=== PATIENT | female | born 1980 | race Caucasian/White ===

== ENCOUNTER 2020-03-04 09:00 | Outpatient (REF) | payer OTHER, SELFPAY | END 2020-03-04 09:01 | disposition home or self-care (01) | LOC: HO.WFDLDS 09:00 | PROVIDERS: Visit Provider Internal Medicine | DX: Z20.822 Contact with and (suspected) exposure to COVID-19 (principal) | CPT/HCPCS: 36415; C9803; U0003 ==

== ENCOUNTER 2023-11-09 11:36 | Emergency (ER) | payer OTHER, SELFPAY ==
--- NOTE | ~2023-11-09 | CT_ITS ---
EXAMINATION: CT ABDOMEN AND PELVIS WITHOUT CONTRAST CLINICAL INFORMATION: Left lower quadrant pain COMPARISON: None available. TECHNIQUE: Multidetector volumetric imaging was performed from the superior aspect of the liver through the pubic symphysis. Sagittal and coronal reformatted images were obtained on the technologist's workstation. This CT examination was performed using dose optimization techniques as appropriate, variously including the following: *Automated exposure control *Adjustment of mA and/or kV according to patient size (this includes techniques or standardized protocols for targeted exams where dose is matched to indication/reason for exam; i.e. extremities or head) *Use of iterative reconstruction technique DLP: 653 mGy-cm FINDINGS: CANE CUTTER: Nonobstructive bowel pattern. Hepatomegaly. LUNG BASES: The visualized lung bases are unremarkable. LIVER, GALLBLADDER, AND BILIARY TREE: The liver is enlarged and diffusely hypodense. No focal hepatic lesion or biliary ductal dilatation is present. The gallbladder is unremarkable with no evidence of radiopaque gallstones, gallbladder wall thickening, or obvious pericholecystic inflammatory changes. PANCREAS: Unremarkable. SPLEEN: Enlarged at 15.5 cm. Splenule. ADRENAL GLANDS: Unremarkable right adrenal gland. 1.4 cm left adrenal lesion with Hounsfield units less than 10, likely benign adenoma. KIDNEYS AND URETERS: The kidneys are normal in size, shape, and attenuation. No hydronephrosis, hydroureter, or calculi seen. No perinephric stranding. 2 cm right lower pole renal cyst. 5 mm left midpole nonobstructing renal calculus. BLADDER: Decompressed. GASTROINTESTINAL TRACT: Moderately distended stomach. No small bowel obstruction. Unremarkable terminal ileum and appendix. No colonic pathology recognized. ABDOMINAL WALL: Small fat filled umbilical hernia. LYMPH NODES: Nonspecific prominent mediastinal lymph nodes. VASCULAR: Unremarkable. PELVIC VISCERA: Unremarkable. OSSEOUS STRUCTURES: L5-S1 disc disease. CT/CT abdomen pelvis wo IV con IMPRESSION: 1. No acute intra-abdominal or pelvic pathology. 2. Hepatosplenomegaly. 3. 1.4 cm left adrenal adenoma. 4. 2 cm right lower pole renal cyst. 5. 5 mm left mid pole nonobstructing renal calculus. Fleischner guidelines were followed. Electronically signed by: Angie Coronel MD 11/09/2023 02:32 PM EDT
[2023-11-09 11:55] VITALS: BP 167/115; PULSE 129; RESP 18; TEMP 36.6; O2SAT 99; BMI 31.3
[2023-11-09 12:33] LABS: MANUAL DIFF FLAG NO
[2023-11-09 12:34] LABS: Basophils Percent Auto 0.5 % (0-2); Eosinophils Absolute Auto 0.1 X10*3/uL (0.0-0.4); Eosinophils Percent Auto 0.7 % (0-4); Hematocrit 42.1 % (37.0-47.0); Hemoglobin 14.2 g/dl (12.0-16.0); Imm Gran Abs Auto 0.02 X10*3/uL (0.00-0.03); Imm Gran Pct Auto 0.3 % (0.0-0.4); Lymphocytes Absolute Auto 1.4 X10*3/uL (1.2-4.9); Lymphocytes Percent Auto 18.8 % (20-40); Mean Corpuscular HGB Conc 33.7 g/dl (31.0-35.0); Mean Corpuscular Hemoglobin 30.5 pg (27.0-33.0); Mean Corpuscular Volume 90.5 fL (80.0-98.0); Mean Platelet Volume 11.9 fL (9.4-12.3); Monocytes Absolute Auto 0.6 X10*3/uL (0.1-1.2); Monocytes Percent Auto 7.5 % (2-11); Neutrophils Absolute Auto 5.3 x10*3/uL (2.0-8.3); Neutrophils Percent Auto 72.2 % (45-73); Platelet Count 178 X10*3/uL (160-400); Red Blood Count 4.65 X10*6/uL (4.20-5.50); Red Cell Distribution Width 13.6 % (11.0-16.0); White Blood Count 7.3 X10*3/uL (4.8-10.8)
[2023-11-09 12:36] LABS: Appearance Urine Clear; Color Urine Yellow; Glucose Urine UA Negative (Negative); Leukocyte Esterase Urine Trace (Negative); Nitrite Urine Negative (Negative); PH 5.5 (5.0-9.0); Specific Gravity - Urine 1.025 (1.005-1.025); UMIC TRIGGER UACC YES; Urine Blood Negative (Negative); Urine Ketones Trace mg/dL (Negative); Urine Protein Trace mg/dL (Neg-Trace)
[2023-11-09 12:45] LABS: Bacteria Urine None Seen (None Seen); Hyaline Casts Urine 0-2 /LPF (0-2); RBC Urine 0-2 /HPF (0-2); WBC Urine 0-5 /HPF (0-5)
[2023-11-09 12:48] LABS: Alanine Aminotransferase 14 U/L (0-31); Albumin Level 4.8 g/dL (3.5-5.0); Alkaline Phosphatase 48 U/L (39-117); Anion Gap 12 (12-20); Aspartate Amino Transferase 13 U/L (5-31); Bilirubin Total 0.4 mg/dL (0.0-1.0); Blood Urea Nitrogen 11 mg/dL (9-16); Calcium 10.4 mg/dL (8.4-10.2); Carbon Dioxide 31 mmol/L (22-29); Chloride 104 mmol/L (96-108); Estimated Glomerular Filt Rate > 60; Glucose Random 129 mg/dL (60-115); Lipase 28 U/L (8-78); Potassium 4.1 mmol/L (3.3-5.1); Sodium 143 mmol/L (135-145); Total Protein 7.5 g/dL (6.5-8.0)
[2023-11-09 13:15] LABS: UPreg QC Valid YES; Urine Pregnancy NEGATIVE (NEGATIVE)
--- NOTE | 2023-11-09 13:36 | ED.ABDPAIN ---
HPI - Abdominal Pain General Chief Complaint: Abdominal Pain Stated Complaint: L flank pain 5 days Time Seen by Provider: 11/09/23 12:54 Source: patient Mode of arrival: ambulatory Limitations: no limitations History of Present Illness ED Provider: CARA COONEY PA-C HPI narrative: 43 year old female with pmhx significant for nephrolithiasis presents to the ED today for evaluation of left lower quadrant abdominal pain x2 weeks, worsening over the last 5-6 days. Admits to extensive history of renal stones, often requiring surgical management on the left side. Follows with urology at [facility]. Last surgery was approx 10 yrs ago. Admits to passing stone on the right yesterday and since this time, hematuria has been resolving. Admits to continued pain to LLQ which has been waxing/ waning in intensity, now worsening. Patient reports trialing IM toradol yesterday without affect. Admits to associated chills and nausea without vomiting. Normal BM. No hx of diverticulosis/ diverticulitis. Denies fever, flank pain, dysuria, diarrhea, constipation. Related Data Previous Rx's ?Medication ?Instructions ?Recorded ondansetron 4 mg disintegrating 4 mg PO DAILY PRN nausea and 11/09/23 tablet vomiting 5 days #10 tabs prednisone 50 mg tablet 50 mg PO DAILY 5 days #5 tabs 11/09/23 tramadol 50 mg tablet 50 mg PO Q8H PRN pain (scale score 11/09/23 4-6) #10 tabs Allergies Allergy/AdvReac Type Severity Reaction Status Date / Time No Known Allergies Allergy Verified 11/09/23 11:57 [No Known Allergies*] Review of Systems Review of Systems Constitutional: No fever, chills, fatigue, night sweats, weight changes ENT/Mouth: No ear pain, hearing loss, nasal congestion, sinus pain, rhinorrhea, sore throat Eyes: No eye pain, swelling, redness, vision changes, discharge Cardio: No chest pain, palpitations, WONG, orthopnea, peripheral edema Pulm: No SOB, cough, sputum, wheezing, dyspnea, hemoptysis GI: No vomiting, hematemesis, diarrhea, constipation, hematochezia, melena, +LLQ pain, +nausea : No irregular bleeding, dysuria, frequency, urgency, hesitancy, hematuria, flank pain, urinary flow changes, urinary incontinence or retention MSK: No back pain, neck pain, joint pain, myalgias Skin: No lesions, rashes Neuro: No weakness, numbness, paresthesias, LOC, dizziness, headache Psych: No anxiety/panic, depression, SI/HI, AH/VH All other systems reviewed and are negative. [facility] Past Medical History Attestation statement: The following information was validated with the patient. Source: old records reviewed and nursing notes reviewed Social History Social History Advance Directives: No Advance Directives Information Provided: No Physical Exam ED Vital Signs: Vital Signs - 24 hr 11/09/23 11:55 Temperature 97.8 F Pulse Rate 129 H Respiratory Rate 18 Blood Pressure 167/115 H Pulse Oximetry 99 Oxygen Delivery Method Room Air BMI result Body Mass Index 31.3 Course Course Course Narrative: 1336 -- cbc without leukocytosis or left shift. no anemia. h&h stable. No acute electrolyte abnormalities requiring intervention. Random glucose 129. No OLIVIA. Normal liver enzymes. Lipase WNL, pancreatitis unlikely. Urine without infection or blood. negative. CT abdomen/pelvis pending. > at this time, patient being treated with Zofran, Toradol and IV fluids 1512 -- patient reports improvement in pain with Toradol. Admits pain continues to wax and wane. Nausea has resolved. CT abdomen/pelvis showing hepatic steatosis. Unremarkable gallbladder without evidence of acute cholecystitis. There is a 1.4 cm left adrenal lesion consistent with benign adenoma, of which patient is aware of and has the appropriate follow-up for. The kidneys are normal in size bilaterally without evidence of hydronephrosis or hydroureter. No obvious ureteral calculi noted. No perinephric stranding. There is a 2 cm right lower pole renal cyst and a 5 mm left mid pole nonobstructing renal calculi. No evidence of bowel obstruction or significant stool burden. I discussed all workup results with patient. t is likely that she may be passing a stone too small for us to see on CT scan. advised to continue home flomax. Will send prednisone, tramadol and Zofran to pharmacy for symptomatic control. I advised her to follow up with her urologist regarding today's findings. Patient has remained stable throughout ED visit today. Discussed worrisome signs and symptoms and when to return to the ED. All questions answered at this time. Patient is agreeable with disposition and stable for discharge. Medical Decision Making Medical Decision Making [facility] Narrative: 43 year old female with pmhx significant for nephrolithiasis presents to the ED today for evaluation of left lower quadrant abdominal pain x2 weeks, worsening over the last 5-6 days, most concerning for nephrolithiasis, renal colic. Differential diagnoses: appendicitis, diverticulitis, diverticulosis, UTI, IUP, constipation Abdominal exam without peritoneal signs. No evidence of acute abdomen at this time. Well appearing. Low suspicion for acute hepatobiliary disease (including acute cholecystitis), acute infectious processes (pneumonia, hepatitis, pyelonephritis, PID, TOA), vascular catastrophe, bowel obstruction or viscus perforation, ovarian cyst/ rupture/ torsion, ectopic. Presentation not consistent with other acute, emergent causes of abdominal pain at this time. Plan: labs, UA, CT AP, pain control, fluids, serial reassessment Differential Diagnosis Differential Diagnoses: The differential diagnosis associated with the presentation includes as above Admission/Observation Not indicated Lab Data [facility] Lab Attestation statement: I reviewed the patient's lab results. As above 11/09/23 12:14 11/09/23 12:14 Labs: Lab Results 11/09/23 Range/Units 12:14 WBC 7.3 (4.8-10.8) X10*3/uL RBC 4.65 (4.20-5.50) X10*6/uL Hgb 14.2 (12.0-16.0) g/dl Hct 42.1 (37.0-47.0) % MCV 90.5 (80.0-98.0) fL MCH 30.5 (27.0-33.0) pg MCHC 33.7 (31.0-35.0) g/dl RDW 13.6 (11.0-16.0) % Plt Count 178 (160-400) X10*3/uL MPV 11.9 (9.4-12.3) fL Immature Gran % (Auto) 0.3 (0.0-0.4) % Neut % (Auto) 72.2 (45-73) % Lymph % (Auto) 18.8 L (20-40) % [place] % (Auto) 7.5 (2-11) % Eos % (Auto) 0.7 (0-4) % Baso % (Auto) 0.5 (0-2) % Lymph # (Auto) 1.4 (1.2-4.9) X10*3/uL [place] # (Auto) 0.6 (0.1-1.2) X10*3/uL Eos # (Auto) 0.1 (0.0-0.4) X10*3/uL Baso # (Auto) 0.0 (0.0-0.2) X10*3/uL Abs Immat Gran (auto) 0.02 (0.00-0.03) X10*3/uL Absolute Neuts (auto) 5.3 (2.0-8.3) x10*3/uL Absolute Nucleated RBC 0.000 (0.0-0.012) X10*3/uL Nucleated RBC % (auto) 0.0 (0.0-0.2) /100WBC Sodium 143 (135-145) mmol/L Potassium 4.1 (3.3-5.1) mmol/L Chloride 104 (96-108) mmol/L Carbon Dioxide 31 H (22-29) mmol/L Anion Gap 12 (12-20) BUN 11 (9-16) mg/dL Creatinine 0.82 (0.5-1.4) mg/dL Estim Creat Clear Calc 115.0 Estimated GFR > 60 Random Glucose 129 H (60-115) mg/dL Calcium 10.4 H (8.4-10.2) mg/dL Total Bilirubin 0.4 (0.0-1.0) mg/dL AST 13 (5-31) U/L ALT 14 (0-31) U/L Alkaline Phosphatase 48 (39-117) U/L Total Protein 7.5 (6.5-8.0) g/dL Albumin 4.8 (3.5-5.0) g/dL Lipase 28 (8-78) U/L Urine Color Yellow Urine Appearance Clear Urine pH 5.5 (5.0-9.0) Ur Specific [place] 1.025 (1.005-1.025) Urine Protein Trace (Neg-Trace) mg/dL Urine Glucose (UA) Negative (Negative) mg/dL Urine Ketones Trace (Negative) mg/dL Urine Blood Negative (Negative) Urine Nitrite Negative (Negative) Ur Leukocyte Esterase Trace H (Negative) Urine RBC 0-2 (0-2) /HPF Urine WBC 0-5 (0-5) /HPF Ur Squamous Epith Cells 3-5 (0-2) /HPF Urine Bacteria None Seen (None Seen) Hyaline Casts 0-2 (0-2) /LPF Urine Test NEGATIVE (NEGATIVE) Independent Interpretation I performed an independent interpretation of an: CT Scan Interpretation: CT abdomen/ pelvis with stone noted to left kidney, agree with radiologist's interpretation. Radiology Impression Discussion of test interpretation with radiology: I have reviewed the radiologist's reading. Radiologist Impression: EXAMINATION: CT ABDOMEN AND PELVIS WITHOUT CONTRAST CLINICAL INFORMATION: Left lower quadrant pain COMPARISON: None available. TECHNIQUE: Multidetector volumetric imaging was performed from the superior aspect of the liver through the pubic symphysis. Sagittal and coronal reformatted images were obtained on the technologist's workstation. This CT examination was performed using dose optimization techniques as appropriate, variously including the following: *Automated exposure control *Adjustment of mA and/or kV according to patient size (this includes techniques or standardized protocols for targeted exams where dose is matched to indication/reason for exam; i.e. extremities or head) *Use of iterative reconstruction technique DLP: 653 mGy-cm FINDINGS: FACILITY ADMINISTRATOR: Nonobstructive bowel pattern. Hepatomegaly. LUNG BASES: The visualized lung bases are unremarkable. LIVER, GALLBLADDER, AND BILIARY TREE: The liver is enlarged and diffusely hypodense. No focal hepatic lesion or biliary ductal dilatation is present. The gallbladder is unremarkable with no evidence of radiopaque gallstones, gallbladder wall thickening, or obvious pericholecystic inflammatory changes. PANCREAS: Unremarkable. SPLEEN: Enlarged at 15.5 cm. Splenule. ADRENAL GLANDS: Unremarkable right adrenal gland. 1.4 cm left adrenal lesion with Hounsfield units less than 10, likely benign adenoma. KIDNEYS AND URETERS: The kidneys are normal in size, shape, and attenuation. No hydronephrosis, hydroureter, or calculi seen. No perinephric stranding. 2 cm right lower pole renal cyst. 5 mm left midpole nonobstructing renal calculus. BLADDER: Decompressed. GASTROINTESTINAL TRACT: Moderately distended stomach. No small bowel obstruction. Unremarkable terminal ileum and appendix. No colonic pathology recognized. ABDOMINAL WALL: Small fat filled umbilical hernia. LYMPH NODES: Nonspecific prominent mediastinal lymph nodes. VASCULAR: Unremarkable. PELVIC VISCERA: Unremarkable. OSSEOUS STRUCTURES: L5-S1 disc disease. CT/CT abdomen pelvis wo IV con IMPRESSION: 1. No acute intra-abdominal or pelvic pathology. 2. Hepatosplenomegaly. 3. 1.4 cm left adrenal adenoma. 4. 2 cm right lower pole renal cyst. 5. 5 mm left mid pole nonobstructing renal calculus. Fleischner guidelines were followed. Electronically signed by: Angie Coronel MD 11/09/2023 02:32 PM EDT External Record Review External record reviewed: Inpatient record Prescription Management I considered prescription management with: Pain Medication (Tramadol) and Other (Zofran, prednisone) Chronic Conditions Patient?s care impacted by: Other (Renal calculi) Social Determinants Patient?s care significantly limited by Social Determinants of Health including: Other Social Determinant of Health Medications Administered Discontinued Medications Generic Name Dose Route Start Last Admin Trade Name Freq PRN Reason Stop Dose Admin Sodium Chloride 1,000 mls @ 999 mls/hr 11/09/23 13:15 11/09/23 15:09 Ns IV 11/09/23 14:15 Infused .Q1H1M KAILASH Infusion Ketorolac Tromethamine 15 mg 11/09/23 13:13 11/09/23 13:57 Ketorolac Tromethamine 15 Mg/Ml Vial IVPUSH 11/09/23 13:14 15 mg ONCE ONE Administration Ondansetron HCl 4 mg 11/09/23 13:13 11/09/23 13:57 Ondansetron Hcl 4 Mg/2 Ml Vial IVPUSH 11/09/23 13:14 4 mg ONCE ONE Administration Critical Care Time Critical Care Time Critical Care Time: No Discharge Plan Discharge Clinical Impression: Renal colic on left side, Calculus of kidney, Hepatic steatosis, Adrenal adenoma Patient Disposition: Home, Self-Care Instructions: Renal Colic (ED) Additional Instructions: You were seen in the ED today for evaluation of left lower abdominal pain. Your blood work today is reassuring. Your urine is negative for infection or blood. The CT scan of your abdomen did not show evidence of ureteral stone or urinary obstruction. As discussed, it does show a 1.4 cm left adrenal adenoma and a 5 mm left mid pole nonobstructing renal calculi. There is also a 2 cm right lower pole renal cyst. It is possible that your passing stones that we are unable to see on CT scan. Please continue taking Flomax at home. Prednisone as a steroid that has been sent to your pharmacy. Take this over the next 5 days to help with any inflammation. Continue Toradol at home for pain control. Tramadol has been sent to your pharmacy for you to take as needed for breakthrough pain. I recommend following up with your urologist/ agronomy supervisor regarding today's findings. You have also been provided with a referral to [facility] Urology. You may call them to establish care. They will not call you. Return with new or worsening symptoms. In the case of an emergency call 911. Prescriptions: New prednisone 50 mg tablet 50 mg PO DAILY 5 Days Qty: 5 0RF tramadol 50 mg tablet 50 mg PO Q8H PRN (Reason: pain (scale score 4-6)) Qty: 10 0RF ondansetron 4 mg tablet,disintegrating 4 mg PO DAILY PRN (Reason: nausea and vomiting) 5 Days Qty: 10 0RF Referrals: [facility] Urology Services [Provider Group] - 1 week (CT abdomen pelvis wo IV con IMPRESSION: 1. No acute intra-abdominal or pelvic pathology. 2. Hepatosplenomegaly. 3. 1.4 cm left adrenal adenoma. 4. 2 cm right lower pole renal cyst. 5. 5 mm left mid pole nonobstructing renal calculus.) Interventions: ED Discharge Assessment Last Done: 11/09/23 15:14 Discharge Date/Time: 11/09/23 15:14 Print Language: Colombian
[2023-11-09] MEDS: Ketorolac Tromethamine 15 MG/ML VIAL IVPUSH (13:57)
[2023-11-09] MEDS: ondansetron HCL 4 MG/2 ML VIAL IVPUSH (13:57)
[2023-11-09] MEDS: 0.9 % Sodium Chloride 1,000 ML 999 ML IV (14:00)
[2023-11-09 15:14] VITALS: BP 160/102; PULSE 108; RESP 18; TEMP 36.9; O2SAT 99
== END 2023-11-09 15:14 | disposition home or self-care (01) ==
PROVIDERS: Physician Assistant; Emergency Provider Emergency Medicine; PCP Internal Medicine
DX: N20.0 Calculus of kidney (principal); K76.0 Fatty (change of) liver, not elsewhere classified; D35.00 Benign neoplasm of unspecified adrenal gland; R11.0 Nausea; Z79.899 Other long term (current) drug therapy
CPT/HCPCS: 36415; 74176; 80053; 81001; 81025; 83690; 85025; 96361; 96374; 96375; 99284; J1885; J2405

== ENCOUNTER 2023-12-22 14:37 | Emergency (ER) | payer OTHER, SELFPAY ==
[2023-12-22 16:51] VITALS: BP 139/85; PULSE 115; RESP 18; TEMP 36.6; O2SAT 99; BMI 27.3
[2023-12-22 17:18] VITALS: BP 123/82; PULSE 117; RESP 16; O2SAT 97
--- NOTE | 2023-12-22 17:27 | PC.NURSE ---
Pt come to ED today for substance use care. Pt reports for the last 3 months she has been using opiates on a recreational basis. She states it started with chronic pain control then became frequent. She states she has recognized it is an issue and would like to help/treatment. She states she thought the pills were Oxycodone but cannot say for certain. Pt c/o racing heart rate, n/v, and anxiety. VSS, A&Ox3 Denies SI/HI
--- NOTE | 2023-12-22 17:29 | ED.PSYCH ---
HPI - Psych General Chief Complaint: ETOH/Substance Use Stated Complaint: withdrawals Time Seen by Provider: 12/22/23 17:16 History of Present Illness HPI Narrative: Patient is a 43-year-old female presented today wanting to get detox for a history of oxycodone abuse. Patient has been buying some pills off the street which she thought was oxycodone. Last use was this morning. Patient denies any chest pain any shortness breath any dizziness. Did have some nausea associated with not taking the medication feels very anxious. Patient is from home. No other recreational drug use denies any alcohol. Related Data Previous Rx's ?Medication ?Instructions ?Recorded ondansetron 4 mg disintegrating 4 mg PO DAILY PRN nausea and 11/09/23 tablet vomiting 5 days #10 tabs prednisone 50 mg tablet 50 mg PO DAILY 5 days #5 tabs 11/09/23 tramadol 50 mg tablet 50 mg PO Q8H PRN pain (scale score 11/09/23 4-6) #10 tabs Allergies Allergy/AdvReac Type Severity Reaction Status Date / Time No Known Allergies Allergy Verified 12/22/23 16:56 [No Known Allergies*] Review of Systems Review of Systems: No suicidal no homicidal ideation Yes all other systems are reviewed and are negative [facility] Social History Social History Smoked in Last 30 Days: No Use of substances other than those prescribed or required for medical reasons: Yes Substance Use Type: Opiates Substance Use Frequency: Chronic Longstanding Last Used Substance: Hours (ago) Any prior treatment program specific to substance use: No Advance Directives: No Advance Directives Information Provided: No Patient : No Physical Exam Vital Signs: Vital Signs: Last Vital Signs Temp 98.3 F 12/22/23 18:00 Pulse 102 H 12/22/23 18:00 Resp 12 12/22/23 18:00 BP 128/81 12/22/23 18:00 Pulse Ox 100 12/22/23 18:00 O2 Del Method Room Air 12/22/23 18:00 BMI result Body Mass Index 27.3 Appearance: Alert. Oriented X3. No acute distress. Eyes: Pupils equal, round and reactive to light. ENT: Pharynx normal. Neck: Normal inspection. Neck supple. No lymph nodes noted. No crepitus CVS: Normal heart rate and rhythm. Pulses normal. Normal S1 and S2 Respiratory: No respiratory distress. Breath sounds normal. No Wheezing. No rales Abdomen: Soft and nontender. No rigidity. No distention. good BS x4 Skin: Skin warm and dry. Normal skin color. Normal skin turgor. Extremities: No lower extremity edema. Neurovascular intact to all extremities. No Lacerations. No Rash Neuro: Oriented X 3. No motor deficit. No sensory deficit. Moving all extermities. No slurred speech Medications Administered Discontinued Medications Generic Name Dose Route Start Last Admin Trade Name Freq PRN Reason Stop Dose Admin Clonidine HCl 0.1 mg 12/22/23 17:25 12/22/23 17:57 Clonidine Hcl 0.1 Mg Tablet PO 12/22/23 17:26 0.1 mg ONCE ONE Administration Protocol Sodium Chloride 1,000 mls @ 999 mls/hr 12/22/23 17:30 12/22/23 17:57 Ns IV 12/22/23 18:30 999 mls/hr .Q1H1M KAILASH Administration Ondansetron HCl 4 mg 12/22/23 17:24 12/22/23 17:57 Ondansetron Odt 4 Mg Tab.Rapdis TRANSLINGU 12/22/23 17:25 4 mg ONCE ONE Administration Medical Decision Making Medical Decision Making [facility] Narrative: Well-appearing in no acute distress. Patient been taking pills which initially she thought was oxycodone. outside cutter to be potentially fentanyl per patient. She has no suicidal homicidal ideation she wants to stop taking these recreational pills. Came to the ED for help. Labs ordered. Will get substance abuse public speaking coach to discussed case with patient. Patient is tox screen came back positive for fentanyl opiate cocaine. She wants to stop using recreational drugs. head men's golf coach involved evaluated patient. Patient in no distress. Awaiting final disposition tomorrow morning for placement. Differential Diagnosis Differential Diagnoses: The differential diagnosis associated with the presentation includes Polysubstance abuse Admission/Observation Consideration of admission/observation: Escalation of care including admission/observation considered Consult Healthcare Provider Management of the patient was discussed with: Property Insurance Agent (Substance abuse public speaking coach) Lab Data [facility] Lab Attestation statement: I reviewed the patient's lab results. 12/22/23 17:49 12/22/23 17:49 Labs: Lab Results 12/22/23 12/22/23 Range/Units 17:49 18:00 WBC 7.4 (4.8-10.8) X10*3/uL RBC 4.53 (4.20-5.50) X10*6/uL Hgb 13.9 (12.0-16.0) g/dl Hct 41.4 (37.0-47.0) % MCV 91.4 (80.0-98.0) fL MCH 30.7 (27.0-33.0) pg MCHC 33.6 (31.0-35.0) g/dl RDW 13.2 (11.0-16.0) % Plt Count 183 (160-400) X10*3/uL MPV 12.0 (9.4-12.3) fL Immature Gran % (Auto) 0.3 (0.0-0.4) % Neut % (Auto) 62.5 (45-73) % Lymph % (Auto) 27.3 (20-40) % [place] % (Auto) 8.9 (2-11) % Eos % (Auto) 0.5 (0-4) % Baso % (Auto) 0.5 (0-2) % Lymph # (Auto) 2.0 (1.2-4.9) X10*3/uL [place] # (Auto) 0.7 (0.1-1.2) X10*3/uL Eos # (Auto) 0.0 (0.0-0.4) X10*3/uL Baso # (Auto) 0.0 (0.0-0.2) X10*3/uL Abs Immat Gran (auto) 0.02 (0.00-0.03) X10*3/uL Absolute Neuts (auto) 4.7 (2.0-8.3) x10*3/uL Absolute Nucleated RBC 0.000 (0.0-0.012) X10*3/uL Nucleated RBC % (auto) 0.0 (0.0-0.2) /100WBC Sodium 143 (135-145) mmol/L Potassium 3.7 (3.3-5.1) mmol/L Chloride 103 (96-108) mmol/L Carbon Dioxide 31 H (22-29) mmol/L Anion Gap 13 (12-20) BUN 7 L (9-16) mg/dL Creatinine 0.85 (0.5-1.4) mg/dL Estim Creat Clear Calc 103.9 Estimated GFR > 60 Random Glucose 104 (60-115) mg/dL Calcium 10.1 (8.4-10.2) mg/dL Total Bilirubin 0.5 (0.0-1.0) mg/dL AST 15 (5-31) U/L ALT 15 (0-31) U/L Alkaline Phosphatase 51 (39-117) U/L Total Protein 7.6 (6.5-8.0) g/dL Albumin 4.8 (3.5-5.0) g/dL Urine Color Yellow Urine Appearance Clear Urine pH 6.0 (5.0-9.0) Ur Specific [place] <= 1.005 (1.005-1.025) Urine Protein Negative (Neg-Trace) mg/dL Urine Glucose (UA) Negative (Negative) mg/dL Urine Ketones Negative (Negative) mg/dL Urine Blood Negative (Negative) Urine Nitrite Negative (Negative) Ur Leukocyte Esterase Small (1+) H (Negative) Urine RBC 0-2 (0-2) /HPF Urine WBC 0-5 (0-5) /HPF Ur Squamous Epith Cells 0-2 (0-2) /HPF Urine Bacteria None Seen (None Seen) Hyaline Casts 0-2 (0-2) /LPF Urine Test NEGATIVE (NEGATIVE) Urine Opiates Screen POSITIVE H (Not Detect) Ur Buprenorphine Scrn Not Detected (Not Detect) ng/mL Ur Oxycodone Screen Positive H (Not Detect) ng/mL Urine Methadone Screen Not Detected (Not Detect) ng/mL Urine Fentanyl Screen POSITIVE H (Not Detect) Acetaminophen < 3 (<30) mcg/mL Ur Barbiturates Screen Not Detected (Not Detect) Ur Phencyclidine Scrn Not Detected (Not Detect) Ur Amphetamines Screen Not Detected (Not Detect) U Benzodiazepines Scrn Not Detected (Not Detect) Urine Cocaine Screen POSITIVE H (Not Detect) U Marijuana (THC) Screen POSITIVE H (Not Detect) Discharge Plan Discharge Clinical Impression: Polysubstance abuse Patient Disposition: Still a Patient Instructions: Polysubstance Abuse (ED) Prescriptions: No Action prednisone 50 mg tablet 50 mg PO DAILY 5 Days Qty: 5 0RF tramadol 50 mg tablet 50 mg PO Q8H PRN (Reason: pain (scale score 4-6)) Qty: 10 0RF ondansetron 4 mg tablet,disintegrating 4 mg PO DAILY PRN (Reason: nausea and vomiting) 5 Days Qty: 10 0RF Referrals: Alysia Proctor MD [Primary Care Provider] - (Patient to be seen by power and recovery shift engineer. Final discharge plan as per power and recovery shift engineer) Print Language: Georgian
[2023-12-22 17:54] LABS: MANUAL DIFF FLAG NO
[2023-12-22 17:57] VITALS: BP 123/82
[2023-12-22] MEDS: cloNIDine HCL 0.1 MG TABLET PO (17:57)
[2023-12-22] MEDS: 0.9 % Sodium Chloride 1,000 ML 999 ML IV (17:57)
[2023-12-22] MEDS: Ondansetron ODT 4 MG TAB.RAPDIS TRANSLINGU (17:57)
[2023-12-22 18:00] VITALS: BP 128/81; PULSE 102; RESP 12; TEMP 36.8; O2SAT 100
[2023-12-22 18:09] LABS: Alanine Aminotransferase 15 U/L (0-31); Albumin Level 4.8 g/dL (3.5-5.0); Alkaline Phosphatase 51 U/L (39-117); Anion Gap 13 (12-20); Aspartate Amino Transferase 15 U/L (5-31); Bilirubin Total 0.5 mg/dL (0.0-1.0); Blood Urea Nitrogen 7 mg/dL (9-16); Calcium 10.1 mg/dL (8.4-10.2); Carbon Dioxide 31 mmol/L (22-29); Chloride 103 mmol/L (96-108); Creatinine Clr Calc Pharmacy 103.9; Estimated Glomerular Filt Rate > 60; Glucose Random 104 mg/dL (60-115); Potassium 3.7 mmol/L (3.3-5.1); Sodium 143 mmol/L (135-145); Total Protein 7.6 g/dL (6.5-8.0)
[2023-12-22 18:11] LABS: Acetaminophen LAB < 3 mcg/mL (<30)
[2023-12-22 18:15] LABS: Basophils Percent Auto 0.5 % (0-2); Eosinophils Percent Auto 0.5 % (0-4); Hematocrit 41.4 % (37.0-47.0); Hemoglobin 13.9 g/dl (12.0-16.0); Imm Gran Abs Auto 0.02 X10*3/uL (0.00-0.03); Imm Gran Pct Auto 0.3 % (0.0-0.4); Lymphocytes Percent Auto 27.3 % (20-40); Mean Corpuscular HGB Conc 33.6 g/dl (31.0-35.0); Mean Corpuscular Hemoglobin 30.7 pg (27.0-33.0); Mean Corpuscular Volume 91.4 fL (80.0-98.0); Monocytes Absolute Auto 0.7 X10*3/uL (0.1-1.2); Monocytes Percent Auto 8.9 % (2-11); Neutrophils Absolute Auto 4.7 x10*3/uL (2.0-8.3); Neutrophils Percent Auto 62.5 % (45-73); Platelet Count 183 X10*3/uL (160-400); Red Blood Count 4.53 X10*6/uL (4.20-5.50); Red Cell Distribution Width 13.2 % (11.0-16.0); White Blood Count 7.4 X10*3/uL (4.8-10.8)
[2023-12-22 18:18] LABS: Appearance Urine Clear; Color Urine Yellow; Glucose Urine UA Negative (Negative); Leukocyte Esterase Urine Small (1+) (Negative); Nitrite Urine Negative (Negative); Specific Gravity - Urine <= 1.005 (1.005-1.025); UMIC TRIGGER UA YES; UPreg QC Valid YES; Urine Blood Negative (Negative); Urine Ketones Negative (Negative); Urine Pregnancy NEGATIVE (NEGATIVE); Urine Protein Negative (Neg-Trace)
--- NOTE | 2023-12-22 18:27 | PC.NURSE ---
Security to bedside to check Pt belongings.
[2023-12-22 18:48] LABS: Bacteria Urine None Seen (None Seen); Hyaline Casts Urine 0-2 /LPF (0-2); RBC Urine 0-2 /HPF (0-2); Squamous Epithelial Cell Urine 0-2 /HPF (0-2); WBC Urine 0-5 /HPF (0-5)
[2023-12-22 18:54] LABS: Amphetamine Screen Urine Not Detected (Not Detect); Barbiturates, Urine Not Detected (Not Detect); Benzodiazepines Screen Urine Not Detected (Not Detect); Buprenorphine Scr Not Detected (Not Detect); Cannabinoid Screen Urine POSITIVE (Not Detect); Cocaine Screen Urine POSITIVE (Not Detect); Fentanyl, urine POSITIVE (Not Detect); Methadone Screen, Urine Not Detected (Not Detect); Opiate Screen Urine POSITIVE (Not Detect); Oxycodone Screen Urine Positive (Not Detect); Phencyclidine Screen Urine Not Detected (Not Detect)
--- NOTE | 2023-12-22 19:04 | MHC.RECOVSUP ---
? Reason for consult Recovery support o Current location: ED8 o Identified substance use concern: Opiate - Seeking ATS (detox) - Support ? Intervention: o Community resources provided o Harm reduction discussion ? Plan: o Patient to follow up with [facility] after discharge ? Additional information: Met with Patient and she stated that she needs detox from Opiate. At the moment theres no beds. I spoke with the nurse in charge and she will be in the ED till tomorrow to conduct another bed search.
[2023-12-22 20:23] VITALS: BP 125/87; PULSE 125; RESP 18; TEMP 36.6; O2SAT 97
--- NOTE | 2023-12-22 20:54 | MHC.EDTECH ---
This tech was looking for pt for approx. 20 minutes in room, pt was nowhere to be found, hospital gown was left on bed, some belongings were left at bedside, RN made aware. service desk associate had let me know around 2019 that pt was found outside waiting room, IV still in place, monitor leads also in place, pt's personal clothing were on herself. when this tech talked to pt, she had stated I was outside talking to my son face to face. it was a personal conversation. RN and Charge made aware of everything stated above. Security called to help perform a full gear changer and to obtain all belongings with verbal orders made from RN. Pt was refusing the gear changer, , RN, and security intern made aware. Pt requesting to be discharged at this time
--- NOTE | 2023-12-22 21:05 | PC.NURSE ---
While waiting for detox placement/assist with inpatient bed search, patient walked out of the ED with her IV in place. Patient reports that she had to make a private phone call to her son. When she returned, patient was asked to change into a gown per hospital policy, and patient explained the need to have her belongings stored with security with belongings list to be made, patient refused to change into a hospital gown and belongings to be secured per [facility] policy. She removed her IV line and used a restroom three times in 20 minutes unsupervised. , this RN, and charge nurse explained to patient the need to help her getting a detox bed. Patient refused at this time, requesting to walk out AMA. Patient is alert and oriented x4, not in acute distress, denies SI/HI. Patient was given a list of detox facilities with instructions to f/u with Dr. Proctor. She explained risks including future overdose future harm to self. Patient refused to sign AMA form, however accepted discharge instructions with a list of detox facilities. Patient left AMA with her belongings.
--- NOTE | 2023-12-24 08:05 | MHC.RECOVRN ---
Spoke with pt on the phone after discharge to help facilitate ATS admission. Pt accepted to [facility].
== END 2023-12-22 21:17 | disposition left against medical advice (07) ==
PROVIDERS: Emergency Provider Emergency Medicine Emergency Medical Services; PCP Internal Medicine
DX: F19.10 Other psychoactive substance abuse, uncomplicated (principal); R11.0 Nausea; F41.9 Anxiety disorder, unspecified
CPT/HCPCS: 36415; 80053; 80143; 80307; 81001; 81025; 85025; 99283; 99284

== ENCOUNTER 2024-01-31 11:42 | Emergency (ER) | payer OTHER, SELFPAY ==
[2024-01-31 12:03] VITALS: BP 124/70; PULSE 101; RESP 20; TEMP 36.6; O2SAT 97; BMI 31.2
--- NOTE | 2024-01-31 12:06 | ED_ITS ---
HPI - General Adult General Chief complaint: Abdominal Pain Stated complaint: kidney stones History of Present Illness HPI narrative: patient left before completion of treatment by ED provider. Related Data Previous Rx's ?Medication ?Instructions ?Recorded ondansetron 4 mg disintegrating 4 mg PO DAILY PRN nausea and 11/09/23 tablet vomiting 5 days #10 tabs prednisone 50 mg tablet 50 mg PO DAILY 5 days #5 tabs 11/09/23 tramadol 50 mg tablet 50 mg PO Q8H PRN pain (scale score 11/09/23 4-6) #10 tabs Allergies Allergy/AdvReac Type Severity Reaction Status Date / Time No Known Allergies Allergy Verified 01/31/24 12:06 [No Known Allergies*] [facility] Social History Social History Substance Use Type: Opiates Advance Directives: No Advance Directives Information Provided: No Do you have a plan to hurt others: No Plan Physical Exam ED Vital Signs: Vital Signs - 24 hr 01/31/24 12:03 Temperature 97.8 F Pulse Rate 101 H Respiratory Rate 20 Blood Pressure 124/70 Pulse Oximetry 97 Oxygen Delivery Method Room Air BMI result Body Mass Index 31.2 Course Course Course Narrative: RME: 43 year female presents to ED for left flank pain. Patient has history of kidney stones and known left kidney stone that she can have a passive usually requires surgical intervention. Patient states left flank pain with hematuria for a couple of days. Positive for left CVA flank some tenderness to palpation. Labs ordered. Medical Decision Making Lab Data 01/31/24 12:17 01/31/24 12:17 Labs: Lab Results 01/31/24 Range/Units 12:17 WBC 6.0 (4.8-10.8) X10*3/uL RBC 4.33 (4.20-5.50) X10*6/uL Hgb 13.1 (12.0-16.0) g/dl Hct 39.1 (37.0-47.0) % MCV 90.3 (80.0-98.0) fL MCH 30.3 (27.0-33.0) pg MCHC 33.5 (31.0-35.0) g/dl RDW 12.4 (11.0-16.0) % Plt Count 204 (160-400) X10*3/uL MPV 10.9 (9.4-12.3) fL Immature Gran % (Auto) 0.2 (0.0-0.4) % Neut % (Auto) 63.6 (45-73) % Lymph % (Auto) 24.5 (20-40) % Lyman % (Auto) 9.2 (2-11) % Eos % (Auto) 1.8 (0-4) % Baso % (Auto) 0.7 (0-2) % Lymph # (Auto) 1.5 (1.2-4.9) X10*3/uL Lyman # (Auto) 0.6 (0.1-1.2) X10*3/uL Eos # (Auto) 0.1 (0.0-0.4) X10*3/uL Baso # (Auto) 0.0 (0.0-0.2) X10*3/uL Abs Immat Gran (auto) 0.01 (0.00-0.03) X10*3/uL Absolute Neuts (auto) 3.8 (2.0-8.3) x10*3/uL Absolute Nucleated RBC 0.000 (0.0-0.012) X10*3/uL Nucleated RBC % (auto) 0.0 (0.0-0.2) /100WBC Sodium 143 (135-145) mmol/L Potassium 3.5 (3.3-5.1) mmol/L Chloride 103 (96-108) mmol/L Carbon Dioxide 32 H (22-29) mmol/L Anion Gap 12 (12-20) BUN 14 (9-16) mg/dL Creatinine 0.73 (0.5-1.4) mg/dL Estim Creat Clear Calc 128.9 Estimated GFR > 60 Random Glucose 117 H (60-115) mg/dL Calcium 9.9 (8.4-10.2) mg/dL Total Bilirubin 0.5 (0.0-1.0) mg/dL AST 27 (5-31) U/L ALT 19 (0-31) U/L Alkaline Phosphatase 49 (39-117) U/L Total Protein 7.4 (6.5-8.0) g/dL Albumin 4.5 (3.5-5.0) g/dL Beta HCG, Quant < 2 mIU/mL Urine Color Dark Yellow Urine Appearance Cloudy Urine pH 5.5 (5.0-9.0) Ur Specific [place] 1.025 (1.005-1.025) Urine Protein 30 (1+) H (Neg-Trace) mg/dL Urine Glucose (UA) Negative (Negative) mg/dL Urine Ketones Trace (Negative) mg/dL Urine Blood Large (3+) H (Negative) Urine Nitrite Negative (Negative) Ur Leukocyte Esterase Negative (Negative) Urine RBC >20 H (0-2) /HPF Urine WBC 0-5 (0-5) /HPF Ur Squamous Epith Cells 0-2 (0-2) /HPF Urine Bacteria None Seen (None Seen) Hyaline Casts 0-2 (0-2) /LPF Urine Test NEGATIVE (NEGATIVE) Discharge Plan Discharge Clinical Impression: Abdominal pain Patient Disposition: Left W/O Completing Treatment Prescriptions: No Action prednisone 50 mg tablet 50 mg PO DAILY 5 Days Qty: 5 0RF tramadol 50 mg tablet 50 mg PO Q8H PRN (Reason: pain (scale score 4-6)) Qty: 10 0RF ondansetron 4 mg tablet,disintegrating 4 mg PO DAILY PRN (Reason: nausea and vomiting) 5 Days Qty: 10 0RF Discharge Date/Time: 01/31/24 20:27
[2024-01-31 12:24] LABS: MANUAL DIFF FLAG NO
[2024-01-31 12:26] LABS: Appearance Urine Cloudy; Basophils Percent Auto 0.7 % (0-2); Color Urine Dark Yellow; Eosinophils Absolute Auto 0.1 X10*3/uL (0.0-0.4); Eosinophils Percent Auto 1.8 % (0-4); Glucose Urine UA Negative (Negative); Hematocrit 39.1 % (37.0-47.0); Hemoglobin 13.1 g/dl (12.0-16.0); Imm Gran Abs Auto 0.01 X10*3/uL (0.00-0.03); Imm Gran Pct Auto 0.2 % (0.0-0.4); Leukocyte Esterase Urine Negative (Negative); Lymphocytes Absolute Auto 1.5 X10*3/uL (1.2-4.9); Lymphocytes Percent Auto 24.5 % (20-40); Mean Corpuscular HGB Conc 33.5 g/dl (31.0-35.0); Mean Corpuscular Hemoglobin 30.3 pg (27.0-33.0); Mean Corpuscular Volume 90.3 fL (80.0-98.0); Mean Platelet Volume 10.9 fL (9.4-12.3); Monocytes Absolute Auto 0.6 X10*3/uL (0.1-1.2); Monocytes Percent Auto 9.2 % (2-11); Neutrophils Absolute Auto 3.8 x10*3/uL (2.0-8.3); Neutrophils Percent Auto 63.6 % (45-73); Nitrite Urine Negative (Negative); PH 5.5 (5.0-9.0); Platelet Count 204 X10*3/uL (160-400); Red Blood Count 4.33 X10*6/uL (4.20-5.50); Red Cell Distribution Width 12.4 % (11.0-16.0); Specific Gravity - Urine 1.025 (1.005-1.025); UMIC TRIGGER UACC YES; Urine Blood Large (3+) (Negative); Urine Ketones Trace mg/dL (Negative); Urine Protein 30 (1+) mg/dL (Neg-Trace)
[2024-01-31 12:29] LABS: UPreg QC Valid YES; Urine Pregnancy NEGATIVE (NEGATIVE)
[2024-01-31 12:54] LABS: Alanine Aminotransferase 19 U/L (0-31); Albumin Level 4.5 g/dL (3.5-5.0); Alkaline Phosphatase 49 U/L (39-117); Anion Gap 12 (12-20); Aspartate Amino Transferase 27 U/L (5-31); Bilirubin Total 0.5 mg/dL (0.0-1.0); Blood Urea Nitrogen 14 mg/dL (9-16); Calcium 9.9 mg/dL (8.4-10.2); Carbon Dioxide 32 mmol/L (22-29); Chloride 103 mmol/L (96-108); Creatinine Clr Calc Pharmacy 128.9; Estimated Glomerular Filt Rate > 60; Glucose Random 117 mg/dL (60-115); Potassium 3.5 mmol/L (3.3-5.1); Sodium 143 mmol/L (135-145); Total Protein 7.4 g/dL (6.5-8.0)
[2024-01-31 12:57] LABS: HCG Quantitative < 2 mIU/mL
[2024-01-31 12:59] LABS: Bacteria Urine None Seen (None Seen); Hyaline Casts Urine 0-2 /LPF (0-2); RBC Urine >20 /HPF (0-2); Squamous Epithelial Cell Urine 0-2 /HPF (0-2); WBC Urine 0-5 /HPF (0-5)
== END 2024-01-31 20:27 | disposition left against medical advice (07) ==
LOC: HO.ED 20:06
PROVIDERS: Physician Assistant; Emergency Provider Emergency Medicine; PCP Internal Medicine
DX: R10.2 Pelvic and perineal pain (principal); R31.9 Hematuria, unspecified; Z79.899 Other long term (current) drug therapy; Z87.442 Personal history of urinary calculi
CPT/HCPCS: 36415; 80053; 81001; 81025; 84702; 85025; 99282; 99283

== ENCOUNTER 2024-09-10 22:50 | Emergency (ER) | payer OTHER, SELFPAY ==
--- NOTE | 2024-09-10 | ECG_ITS ---
Test Reason : TACHY Blood Pressure : */* mmHG Vent. Rate : 112 BPM Atrial Rate : 112 BPM P-R Int : 160 ms QRS Dur : 90 ms QT Int : 332 ms P-R-T Axes : 78 69 78 degrees QTcB Int : 453 ms Sinus tachycardia Minimal voltage criteria for LVH, may be normal variant ( Sokolow-Xiong ) Nonspecific ST abnormality Abnormal ECG No previous ECGs available Referred By: Generic ED Physician Electronically Signed By: Dalton Jansen
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
[2024-09-10 23:07] VITALS: BP 141/89; PULSE 119; RESP 20; TEMP 36.8; O2SAT 97; BMI 31.6
[2024-09-10 23:31] LABS: Appearance Urine Cloudy; Glucose Urine UA Negative (Negative); PH 5.5 (5.0-9.0); Specific Gravity - Urine >= 1.030 (1.005-1.025); UMIC TRIGGER UACC YES
[2024-09-10 23:31] LABS: Hematocrit 34.9 % (37.0-47.0); Hemoglobin 12.0 g/dl (12.0-16.0); Imm Gran Abs Auto 0.01 X10*3/uL (0.00-0.03); Imm Gran Pct Auto 0.2 % (0.0-0.4); Lymphocytes Absolute Auto 1.2 X10*3/uL (1.2-4.9); Mean Corpuscular HGB Conc 34.4 g/dl (31.0-35.0); Mean Corpuscular Hemoglobin 30.2 pg (27.0-33.0); Mean Corpuscular Volume 87.7 fL (80.0-98.0); NRBC Abs Auto 0.000 X10*3/uL (0.0-0.012); NRBC Pct Auto 0.0 /100WBC (0.0-0.2); Platelet Count 143 X10*3/uL (160-400); Red Blood Count 3.98 X10*6/uL (4.20-5.50); White Blood Count 5.2 X10*3/uL (4.8-10.8)
[2024-09-10 23:32] LABS: MANUAL DIFF FLAG NO
[2024-09-10 23:40] LABS: Epith (RTE) Cast Present; Other Crystals Urine Present; UACC Culture Trigger YES
[2024-09-10 23:46] LABS: Alanine Aminotransferase 11 U/L (0-31); Albumin Level 4.1 g/dL (3.5-5.0); Alkaline Phosphatase 59 U/L (39-117); Anion Gap 13 (12-20); Aspartate Amino Transferase 16 U/L (5-31); Blood Urea Nitrogen 8 mg/dL (9-16); Calcium 9.0 mg/dL (8.4-10.2); Carbon Dioxide 25 mmol/L (22-29); Chloride 107 mmol/L (96-108); Creatinine Clr Calc Pharmacy 137.8; Estimated Glomerular Filt Rate > 60; Potassium 3.4 mmol/L (3.3-5.1); Sodium 142 mmol/L (135-145); Total Protein 7.3 g/dL (6.5-8.0)
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
[2024-09-11 00:04] VITALS: BP 145/75; PULSE 93; RESP 20; TEMP 36.7; O2SAT 95
[2024-09-11] MEDS: methADONE HCl 20 MG/2 ML ORAL.CONC 30 MG PO (01:14)
[2024-09-11 02:03] LABS: Resp Syncy Virus RNA Qual PCR NEGATIVE (Negative); SARS COV2 PCR INHOUSE NEGATIVE (Negative)
[2024-09-11 02:08] VITALS: BP 108/55; PULSE 89; RESP 16; TEMP 36.9; O2SAT 99
[2024-09-11 02:51] VITALS: BP 122/81; PULSE 96; RESP 19; TEMP 36.9; O2SAT 96
== END 2024-09-11 03:03 | disposition home or self-care (01) ==
PROVIDERS: Emergency Provider Emergency Medicine
DX: S80.11XA Contusion of right lower leg, initial encounter (principal); N39.0 Urinary tract infection, site not specified; R50.9 Fever, unspecified; F14.10 Cocaine abuse, uncomplicated; R10.2 Pelvic and perineal pain; M79.604 Pain in right leg; V43.92XA Unspecified car occupant injured in collision with other type car in traffic accident, initial encounter; Y93.9 Activity, unspecified; Y92.410 Unspecified street and highway as the place of occurrence of the external cause; Y99.8 Other external cause status; Z79.899 Other long term (current) drug therapy; Z03.818 Encounter for observation for suspected exposure to other biological agents ruled out
CPT/HCPCS: 36415; 71046; 73590; 80053; 81001; 84702; 85025; 87086; 87637; 93005; 99283; 99284

== ENCOUNTER → 2024-09-10 23:13 | Outpatient (BNV) | payer OTHER, SELFPAY | PROVIDERS: Emergency Provider Emergency Medicine; Visit Provider Internal Medicine Cardiovascular Disease | DX: R00.0 Tachycardia, unspecified (principal) | CPT/HCPCS: 93010 ==

== ENCOUNTER → 2024-09-11 00:30 | Outpatient (BNV) | payer OTHER, SELFPAY | PROVIDERS: Emergency Provider Emergency Medicine; Visit Provider Radiology Diagnostic Radiology | DX: R50.9 Fever, unspecified (principal); S89.91XA Unspecified injury of right lower leg, initial encounter; V89.2XXA Person injured in unspecified motor-vehicle accident, traffic, initial encounter | CPT/HCPCS: 71046; 73590 ==

== ENCOUNTER 2024-10-21 07:33 | Emergency (ER) | payer OTHER, SELFPAY ==
[2024-10-21 07:43] VITALS: BP 143/95; PULSE 108; RESP 16; TEMP 36.8; O2SAT 96; BMI 31.6
[2024-10-21 08:08] LABS: MANUAL DIFF FLAG NO
[2024-10-21 08:09] LABS: Hematocrit 36.8 % (37.0-47.0); Hemoglobin 12.2 g/dl (12.0-16.0); Imm Gran Abs Auto 0.02 X10*3/uL (0.00-0.03); Imm Gran Pct Auto 0.3 % (0.0-0.4); Lymphocytes Absolute Auto 1.1 X10*3/uL (1.2-4.9); Mean Corpuscular HGB Conc 33.2 g/dl (31.0-35.0); Mean Corpuscular Hemoglobin 29.8 pg (27.0-33.0); Mean Corpuscular Volume 90.0 fL (80.0-98.0); NRBC Abs Auto 0.000 X10*3/uL (0.0-0.012); NRBC Pct Auto 0.0 /100WBC (0.0-0.2); Platelet Count 142 X10*3/uL (160-400); Red Blood Count 4.09 X10*6/uL (4.20-5.50); White Blood Count 6.3 X10*3/uL (4.8-10.8)
[2024-10-21 08:10] LABS: Appearance Urine Cloudy; Glucose Urine UA Negative (Negative); PH 6.5 (5.0-9.0); Specific Gravity - Urine 1.020 (1.005-1.025); UMIC TRIGGER UACC YES
[2024-10-21 08:22] LABS: UACC Culture Trigger YES
[2024-10-21 08:23] LABS: Alanine Aminotransferase 21 U/L (0-31); Albumin Level 4.5 g/dL (3.5-5.0); Alkaline Phosphatase 70 U/L (39-117); Anion Gap 14 (12-20); Aspartate Amino Transferase 25 U/L (5-31); Blood Urea Nitrogen 11 mg/dL (9-16); Calcium 9.4 mg/dL (8.4-10.2); Carbon Dioxide 28 mmol/L (22-29); Chloride 103 mmol/L (96-108); Creatinine Clr Calc Pharmacy 118.6; Estimated Glomerular Filt Rate > 60; Potassium 4.3 mmol/L (3.3-5.1); Sodium 141 mmol/L (135-145); Total Protein 7.3 g/dL (6.5-8.0)
--- NOTE | 2024-10-21 08:38 | ED_ITS ---
HPI - General Adult General Chief complaint: General Medical Stated complaint: uti Time Seen by Provider: 10/21/24 08:04 Source: patient Mode of arrival: ambulatory Limitations: no limitations History of Present Illness ED Provider: CARA COONEY PA-C HPI narrative: 44-year-old female with pmhx significant for multiple sclerosis and polysubstance use presents to the ED today for concerns of UTI. She reports foul-smelling urine, burning with urination, and increased urinary frequency x1 month. She denies any abdominal of flank pain, hematuria. She states this feels similar to her prior UTIs. Reports hx of renal stones however this does not feel similar. She also reports concerns of a possible abscess to her right buttock. She reports noticing a small pimple to the area yesterday that her boyfriend attempted to charlene. He was apparently only able to express blood, no pus. She reports waking up this morning and noticing the area to her right buttock is expanding. Reports the area feels firm and tender. She is currently homeless and sleeps outside. She has not noticed any specific tick/ insect bites. She denies any rashes, fever, chills, joint pain. She admits to smoking cocaine and fentanyl, last used last night. Denies any IVDU. She is declining to speak with our recovery team today. Declining detox. She states that she is entering an outpatient treatment facility in a few days. Related Data Previous Rx's ?Medication ?Instructions ?Recorded ondansetron 4 mg disintegrating 4 mg PO DAILY PRN naus ea and 11/09/23 tablet vomiting 5 days #10 tabs prednisone 50 mg tablet 50 mg PO DAILY 5 days #5 tab s 11/09/23 tramadol 50 mg tablet 50 mg PO Q8H PRN pain (scale score 11/09/23 4-6) #10 tabs cefuroxime axetil 250 mg tablet 250 mg PO BID #10 tabs 09/11/24 oxycodone 5 mg tablet 5 mg PO Q6H PRN pain #8 tabs 09/11/24 doxycycline monohydrate 100 mg 100 mg PO BID 7 days #1 3 tabs 10/21/24 tablet nitrofurantoin 100 mg PO BID 7 days #13 cap s 10/21/24 monohydrate/macrocrystals 100 mg capsule (Macrobid) Allergies Allergy/AdvReac Type Severity Reaction Status Date / Time No Known Allergies (No Known Allergy Verified 10/21/24 07:45 Allergies*) Review of Systems 2 Review of Systems: Yes all other systems are reviewed and are negative [facility] Past Medical History Attestation statement: The following information was validated with the patient. Source: old records reviewed and nursing notes reviewed Social History Social History Smoked in Last 30 Days: No Use of substances other than those prescribed or required for medical reasons: No Substance Use Type: Crack/Cocaine and Heroin Advance Directives: No Advance Directives Information Provided: No Do you have a plan to hurt others: No Plan Patient : No Physical Exam ED Vital Signs: Vital Signs - 24 hr 10/21/24 07:43 10/21/24 09:18 10/21/24 09:19 Temperature 98.2 F 98.0 F 98.0 F Pulse Rate 108 H 96 96 Respiratory Rate 16 18 18 Blood Pressure 143/95 H 130/88 130/88 Pulse Oximetry 96 99 99 Oxygen Delivery Method Room Air Room Air Room Air BMI result Body Mass Index 31.6 tachycardic, hypertensive, afebrile General: Well appearing, in no acute distress. Skin: Warm, dry Head: Normocephalic, atraumatic. EENT: Hearing is intact b/l. Neck: .Trachea midline.? Cardiac: Chest wall symmetric. Lungs: Normal respiratory effort without accessory muscle use. Abdomen: Soft, non-tender, non-distended. No rebound tenderness or guarding. Positive BS x4. no cvat. Back: no midline spinous tenderness, no step off, 3cm x3cm area of erythema noted to right buttock with small area of central ulceration and surrounding ecchymosis, warm, tender, indurated, no crepitus, no fluctuance, no expressible discharge Ext: Upper and lower extremities atraumatic, without tenderness, deformity, swelling or erythema. Full ROM throughout. Neuro: AOx3. Normal speech. Strength 5/5 intact throughout. Sensation intact to light touch. Ambulating with steady gait. Course Course Course Narrative: 0900 -- cbc without leukocytosis or left shift. h&h stable. chemistry without acute electrolyte abnormality requiring intervention. no OLIVIA. normal liver function. urine positive for infection, negative for . > discussed results with patient. plan to treat UTI w/ macrobid. I do not have concern for ascending infection/ pyelonephritis given unremarkable exam/ work up. > her physical exam is consistent with possible cellulitic insect bite. I have added on tick/lyme testing as patient is currently homeless and living outside. she will be contact with these results. as of now, will treat cellulitis with doxycycline. she has no evidence of abscess. Patient has remained stable throughout ED visit today. Discussed worrisome signs and symptoms and when to return to the ED. All questions answered at this time. Patient is agreeable with disposition and stable for discharge. Medications Administered Discontinued Medications Generic Name Dose Route Start Last Admin Trade Name Freq PRN Reason Stop Dose Admin Doxycycline Monohydrate 100 mg 10/21/24 09:00 10/21/24 09:10 Doxycycline Monohydrate 100 Mg Capsule PO 10/21/24 09:01 100 mg ONCE ONE Administration Nitrofurantoin Macrocrystals 100 mg 10/21/24 09:00 10/21/24 09:10 Nitrofurantoin Monohyd/M-Cryst 100 Mg Capsule PO 10/21/24 09:01 100 mg ONCE ONE Administration Medical Decision Making Medical Decision Making [facility] Narrative: 44-year-old female with pmhx significant for multiple sclerosis and polysubstance use presents to the ED today for concerns of UTI. Her vitals show tachycardia and hypertension, afebrile. On exam, there is a 3cm x3cm area of erythema noted to right buttock with small area of central ulceration and surrounding ecchymosis, warm, tender, indurated, no crepitus, no fluctuance, no expressible discharge. abdomen is soft, ND/NT, no rebound/ guarding, normoactive bs x4. no cvat. Differential diagnosis includes anemia, electrolyte abnormality, urinary tract infection, pyelonephritis, nephrolithiasis, cellulitis, abscess, insect bite, tick bite Plan for screening labs, tick/Lyme testing, UA, urine . Differential Diagnosis Differential Diagnoses: The differential diagnosis associated with the presentation includes as above. Admission/Observation not indicated Lab Data [facility] Lab Attestation statement: I reviewed the patient's lab results. as above. 10/21/24 08:03 10/21/24 08:03 Labs: Lab Results 10/21/24 Range/Units 08:03 WBC 6.3 (4.8-10.8) X10*3/uL RBC 4.09 L (4.20-5.50) X10*6/uL Hgb 12.2 (12.0-16.0) g/dl Hct 36.8 L (37.0-47.0) % MCV 90.0 (80.0-98.0) fL MCH 29.8 (27.0-33.0) pg MCHC 33.2 (31.0-35.0) g/dl RDW 13.3 (11.0-16.0) % Plt Count 142 L (160-400) X10*3/uL MPV 11.4 (9.4-12.3) fL Immature Gran % (Auto) 0.3 (0.0-0.4) % Neut % (Auto) 72.5 (45-73) % Lymph % (Auto) 17.0 L (20-40) % [place] % (Auto) 8.9 (2-11) % Eos % (Auto) 0.8 (0-4) % Baso % (Auto) 0.5 (0-2) % Lymph # (Auto) 1.1 L (1.2-4.9) X10*3/uL [place] # (Auto) 0.6 (0.1-1.2) X10*3/uL Eos # (Auto) 0.1 (0.0-0.4) X10*3/uL Baso # (Auto) 0.0 (0.0-0.2) X10*3/uL Abs Immat Gran (auto) 0.02 (0.00-0.03) X10*3/uL Absolute Neuts (auto) 4.6 (2.0-8.3) x10*3/uL Absolute Nucleated RBC 0.000 (0.0-0.012) X10*3/uL Nucleated RBC % (auto) 0.0 (0.0-0.2) /100WBC Sodium 141 (135-145) mmol/L Potassium 4.3 D (3.3-5.1) mmol/L Chloride 103 (96-108) mmol/L Carbon Dioxide 28 (22-29) mmol/L Anion Gap 14 (12-20) BUN 11 (9-16) mg/dL Creatinine 0.79 (0.5-1.4) mg/dL Estim Creat Clear Calc 118.6 Estimated GFR > 60 Random Glucose 154 H (60-115) mg/dL Calcium 9.4 (8.4-10.2) mg/dL Total Bilirubin 0.6 (0.0-1.0) mg/dL AST 25 (5-31) U/L ALT 21 (0-31) U/L Alkaline Phosphatase 70 (39-117) U/L Total Protein 7.3 (6.5-8.0) g/dL Albumin 4.5 (3.5-5.0) g/dL Urine Color Yellow Urine Appearance Cloudy Urine pH 6.5 (5.0-9.0) Ur Specific [place] 1.020 (1.005-1.025) Urine Protein 30 (1+) H (Neg-Trace) mg/dL Urine Glucose (UA) Negative (Negative) mg/dL Urine Ketones Negative (Negative) mg/dL Urine Blood Small (1+) H (Negative) Urine Nitrite Positive H (Negative) Ur Leukocyte Esterase Large (3+) H (Negative) Urine RBC 3-5 H (0-2) /HPF Urine WBC >50 H (0-5) /HPF Ur Squamous Epith Cells 11-20 (0-2) /HPF Urine Bacteria 3+ (None Seen) Hyaline Casts 0-2 (0-2) /LPF Urine Test NEGATIVE (NEGATIVE) External Record Review External record reviewed: Inpatient record Prescription Management I considered prescription management with: Pain Medication and Antibiotic (macrobid, doxycycline) Chronic Conditions Patient?s care impacted by: Other (polysubstance use) Social Determinants Patient?s care significantly limited by Social Determinants of Health including: Inadequate housing, Low income, Alcoholism and drug addiction in family and Other Social Determinant of Health Critical Care Time Critical Care Time Critical Care Time: No Discharge Plan Discharge Clinical Impression: Cellulitis of buttock, right, UTI (urinary tract infection) Patient Disposition: Home, Self-Care Instructions: Urinary Tract Infection in Women (ED), Cellulitis (ED) Additional Instructions: You were evaluated in the ED today for increased urinary frequency. Your blood work is reassuring. Your urine is positive for a urinary tract infection. Treatment for this is with antibiotics. Macrobid has been sent to your pharmacy for treatment. You were provided your 1st dose in the ED today. Take this twice daily for the next 7 days. You were also noted to have a skin infection to your right buttock. It is unclear this originated from an insect or tick bite. Your blood has been sent to the lab to test for tick disease/ lyme. You will be contacted with any positive results. I am placing you on a 7 day course of doxycycline as the area appears infected. There is no evidence of abscess that would need to be drained. The area was marked and dated. If the redness begins to extend outside the signs, you develop a fever, etc. please return to the ED for further evaluation. You are declining to speak with our detox/ recovery team today. You state that you were going to a treatment program in a few days. If this phos through or if you change your mind, feel free to return to the ED or follow up with the [facility]. Information provided below. If you decide you want to stop or cut down on how much you?re using, you can call or walk into our outpatient Addiction Treatment office: [facility] (-F 9am-5p) [address] [place] [address], [phone] Prescriptions: New doxycycline monohydrate 100 mg tablet 100 mg PO BID 7 Days Qty: 13 0RF nitrofurantoin monohyd/m-cryst [Macrobid] 100 mg capsule 100 mg PO BID 7 Days Qty: 13 0RF Rx Instructions: must administer with a meal/food No Action prednisone 50 mg tablet 50 mg PO DAILY 5 Days Qty: 5 0RF tramadol 50 mg tablet 50 mg PO Q8H PRN (Reason: pain (scale score 4-6)) Qty: 10 0RF ondansetron 4 mg tablet,disintegrating 4 mg PO DAILY PRN (Reason: nausea and vomiting) 5 Days Qty: 10 0RF cefuroxime axetil 250 mg tablet 250 mg PO BID Qty: 10 0RF oxycodone 5 mg tablet 5 mg PO Q6H PRN (Reason: pain) Qty: 8 0RF Rx Instructions: Partial Fill upon patient request. Interventions: ED Discharge Assessment Last Done: 10/21/24 09:19 Discharge Date/Time: 10/21/24 09:20 Print Language: Nepali
[2024-10-21 09:11] LABS: UPreg QC Valid YES
[2024-10-21 09:18] VITALS: BP 130/88; PULSE 96; RESP 18; TEMP 36.7; O2SAT 99
[2024-10-21 09:19] VITALS: BP 130/88; PULSE 96; RESP 18; TEMP 36.7; O2SAT 99
[2024-10-23 22:43] LABS: A. Phagocytphilium DNA,RT-PCR NOT DETECTED (NOT DETECTED); Babesia Microti DNA, RT-PCR NOT DETECTED (NOT DETECTED); Borrelia Miyamotoi,DNA RT-PCR NOT DETECTED (NOT DETECTED); E.Chaffeensis DNA RT-PCR NOT DETECTED (NOT DETECTED); Lyme(Borrelia ssp)DNA RT-PCR NOT DETECTED (NOT DETECTED)
[2024-10-25 09:19] LABS: Lyme Abs Screen <0.90 index
== END 2024-10-21 09:20 | disposition home or self-care (01) ==
PROVIDERS: Physician Assistant Medical; Emergency Provider Emergency Medicine; PCP Internal Medicine
DX: L03.317 Cellulitis of buttock (principal); N39.0 Urinary tract infection, site not specified; Z79.899 Other long term (current) drug therapy
CPT/HCPCS: 36415; 80053; 81001; 81025; 85025; 86617; 86618; 87086; 87468; 87469; 87478; 87484; 87798; 99283; 99284

== ENCOUNTER 2025-01-24 01:26 | Inpatient (IN) | payer OTHER, SELFPAY ==
[2025-01-24] VITALS (7 sets, daily range): BP systolic 111–133; BP diastolic 57–74; PULSE 89–107; RESP 12–18; TEMP 36.6–37.5; O2SAT 97–99; BMI 26.5; BMI 26.1
--- NOTE | ~2025-01-24 | CT_ITS ---
CLINICAL HISTORY: Rt cheek cellulitis CT maxillofacial with contrast Comparison: None provided Findings: There is superficial soft tissue swelling in the right face anterior to the maxillary sinus. There is no evidence of the drainable abscess. There is no subcutaneous gas. Orbits appear normal. There is minimal mucous in the maxillary sinuses. Mastoids are clear. There are multiple dental caries and a few absent teeth. IMPRESSION: 1. Superficial soft tissue swelling in the right face anteriorly. No evidence of a drainable abscess. 2. Multiple dental caries. This document has been electronically signed by: Bong Mishra MD on 01/24/2025 03:42:35
--- NOTE | ~2025-01-24 | US_ITS ---
US EXTREMITY NON-VASCULAR LIMITED LEFT Reason for the study: Left forearm wound COMPARISON: None FINDINGS: Targeted ultrasound was performed at the location of clinical concern in the left distal/lateral forearm. There is edematous appearance of the local soft tissues, associated with increased vascularity on the color Doppler evaluation. No obvious fluid collections/abscess. US/US Extremity Nonvas Limited LT IMPRESSION: Soft tissue edema associated with increased vascularity at the location of concern in the distal/lateral forearm wound. No obvious fluid collection/abscess. Electronically signed by: Milton Woods MD 01/24/2025 09:44 AM [facility]
--- NOTE | 2025-01-24 01:42 | ED.GENADULT ---
HPI - General Adult General Chief complaint: Skin/Abscess/Foreign Body Stated complaint: right side face is swollen Time Seen by Provider: 01/24/25 01:42 History of Present Illness ED Provider: Amadou TOVAR narrative: The patient is a 44-year-old woman who reports a history of drug use. She says that she does not use IV drugs however. She says that she smokes heroin or fentanyl. She walked to the hospital today because she has had worsening symptoms on the right side of her face and on her left forearm for the last 4 days. She has a large open sore on her left forearm and she has an area of redness and pain on her face for the last 2 days. She insists that she did not use any IV drugs. She also says that she has not had any injury. She did not sustain any burn or other injury. She denies any assault. She says that she has a lot of discomfort in her face and on her left arm. She says that she feels that her heart is racing. She thinks that she has felt feverish as well. Related Data Previous Rx's ?Medication ?Instructions ?Recorded ondansetron 4 mg disintegrating 4 mg PO DAILY PRN nausea and 11/09/23 tablet vomiting 5 days #10 tabs prednisone 50 mg tablet 50 mg PO DAILY 5 days #5 tabs 11/09/23 tramadol 50 mg tablet 50 mg PO Q8H PRN pain (scale score 11/09/23 4-6) #10 tabs cefuroxime axetil 250 mg tablet 250 mg PO BID #10 tabs 09/11/24 oxycodone 5 mg tablet 5 mg PO Q6H PRN pain #8 tabs 09/11/24 doxycycline monohydrate 100 mg 100 mg PO BID 7 days #13 tabs 10/21/24 tablet nitrofurantoin 100 mg PO BID 7 days #13 caps 10/21/24 monohydrate/macrocrystals 100 mg capsule (Macrobid) Allergies Allergy/AdvReac Type Severity Reaction Status Date / Time No Known Allergies (No Known Allergy Verified 01/24/25 01:36 Allergies*) Review of Systems Review of Systems: Yes all other systems are reviewed and are negative PMFSH Social History Social History Substance Use Type: Crack/Cocaine and Heroin Advance Directives: No Patient : No Physical Exam ED Vital Signs: Vital Signs - 24 hr 01/24/25 01:28 01/24/25 03:18 Temperature 98 F Pulse Rate 107 H 104 H Respiratory Rate 12 16 Blood Pressure 121/65 117/74 Pulse Oximetry 97 98 Oxygen Delivery Method Room Air Room Air BMI result Body Mass Index 26.5 Const Other: The patient is awake and alert. She has obvious area of redness and swelling to the right side of her face. She looks somewhat chronically ill. HENMT Other: There is swelling and erythema to the right cheek and the right side of the nose. There is some purulent discharge. No intraoral lesions. Eyes Other: Pupils were midsize and reactive to light. Extraocular movements are intact. Neck Neck: Yes normal visual inspection, Yes full ROM and Yes no lymphadenopathy Resp Effort & Inspection: normal respiratory effort Auscultation: clear to auscultation bilaterally Cardio Other: I do not hear a murmur Rate: regular rate Rhythm: regular rhythm Heart sounds: S1 normal heart sound present and S2 normal heart sound present GI Other: Abdomen is soft and nontender Skin Other: The patient has a fairly large open sore on the left dorsal forearm. There is also erythema and swelling to the adjacent skin and to the distal portion of the forearm and hand. On the skin of the face there is redness and some drainage and swelling to the right cheek. Please see the HEENT section above for a picture. Neuro Other: The patient is awake and alert with a normal mental status. Cranial nerves are grossly intact. She moves her extremities symmetrically and appropriately. She seems grossly neurologically intact. Extrem Other: The left forearm has a large open wound a proximally 4 cm across. It is roughly circular in shape. There is associated soft tissue edema and erythema to the surrounding skin and some mild swelling of the hand. Good pulses in the wrist. She is able to move all the joints of the arm. The lower extremities show no signs of swelling or other significant abnormalities. Medications Administered Generic Name Dose Route Start Last Admin Trade Name Freq PRN Reason Stop Dose Admin Lactated Ringer's 1,000 mls @ 100 mls/hr 01/24/25 05:00 01/24/25 05:37 Lr IVCONT 100 mls/hr .Q10H KAILASH Administration Discontinued Medications Generic Name Dose Route Start Last Admin Trade Name Lety PRN Reason Stop Dose Admin Sodium Chloride 1,000 mls @ 999 mls/hr 01/24/25 02:00 01/24/25 03:18 Ns IV 01/24/25 03:00 Infused .Q1H1M KAILASH Infusion Piperacillin Sod/Tazobactam 100 mls @ 200 mls/hr 01/24/25 01:48 01/24/25 02:36 Sod 4.5 gm/ Sodium Chloride IV 01/24/25 02:17 Infused ONCE ONE Infusion Vancomycin HCl 2,000 mg in 500 mls @ 250 mls/hr 01/24/25 01:48 01/24/25 04:00 Vancomycin/Ns IV 01/24/25 03:47 Infused ONCE ONE Infusion Sodium Chloride 1,000 mls @ 999 mls/hr 01/24/25 02:45 01/24/25 04:30 Ns IV 01/24/25 03:45 Infused .Q1H1M KAILASH Infusion Iohexol 85 ml 01/24/25 02:53 01/24/25 02:53 Iohexol 350 Mg/Ml 100 Ml Infus..Btl IV 01/24/25 02:54 85 ml ONCE ONE Administration Medical Decision Making Medical Decision Making [facility] Narrative: The patient is a 44-year-old woman who presents with a right facial cellulitis and also with a soft tissue infection of the left forearm which looks like a cellulitis associated with a fairly large wound. The patient was mildly tachycardic but otherwise vital signs were unremarkable. She was not febrile. Labs were likewise reassuring. Her white count was normal with a normal differential. Lactate is normal. CRP is mildly abnormal at 2.37. Blood cultures were drawn and the patient was given empiric antibiotics with piperacillin/tazobactam and vancomycin. The patient insists that she does not use IV drugs although she uses fentanyl and heroin. She says that she smokes these drugs. There was some drainage from the right cheek cellulitis which was swabbed and sent for culture. The open wound on the left forearm was also swabbed for a culture. A CT scan of the face was done to evaluate the facial cellulitis and to see if there was any underlying abscess or other complication. The CT scan did not show anything concerning. I do not think the infection and wound on the left arm represent necrotizing fasciitis. The patient does not seem in severe distress. She can move all of the joints well. Her vital signs, her lab results, and overall clear and call appearance would argue against necrotizing fasciitis. I think this is essentially a case of a facial cellulitis/soft tissue infection and a left forearm and hand cellulitis associated with a fairly large wound of uncertain etiology. The patient will be admitted to the hospitalist service. Lab Data 01/24/25 01:58 01/24/25 01:58 Labs: Lab Results 01/24/25 01/24/25 01/24/25 Range/Units 01:57 01:58 03:29 WBC 6.7 (4.8-10.8) X10*3/uL RBC 3.98 L (4.20-5.50) X10*6/uL Hgb 11.6 L (12.0-16.0) g/dl Hct 35.2 L (37.0-47.0) % MCV 88.4 (80.0-98.0) fL MCH 29.1 (27.0-33.0) pg MCHC 33.0 (31.0-35.0) g/dl RDW 13.5 (11.0-16.0) % Plt Count 226 D (160-400) X10*3/uL MPV 11.0 (9.4-12.3) fL Immature Gran % (Auto) 0.3 (0.0-0.4) % Neut % (Auto) 61.4 (45-73) % Lymph % (Auto) 25.6 (20-40) % [place] % (Auto) 8.2 (2-11) % Eos % (Auto) 3.9 (0-4) % Baso % (Auto) 0.6 (0-2) % Lymph # (Auto) 1.7 (1.2-4.9) X10*3/uL [place] # (Auto) 0.6 (0.1-1.2) X10*3/uL Eos # (Auto) 0.3 (0.0-0.4) X10*3/uL Baso # (Auto) 0.0 (0.0-0.2) X10*3/uL Abs Immat Gran (auto) 0.02 (0.00-0.03) X10*3/uL Absolute Neuts (auto) 4.1 (2.0-8.3) x10*3/uL Absolute Nucleated RBC 0.000 (0.0-0.012) X10*3/uL Nucleated RBC % (auto) 0.0 (0.0-0.2) /100WBC Hold Purple Top SEE NOTE Sodium 141 (135-145) mmol/L Potassium 3.9 (3.3-5.1) mmol/L Chloride 102 (96-108) mmol/L Carbon Dioxide 30 H (22-29) mmol/L Anion Gap 13 (12-20) BUN 12 (9-16) mg/dL Creatinine 0.66 (0.5-1.4) mg/dL Estim Creat Clear Calc 130.7 Estimated GFR > 60 Random Glucose 117 H (60-115) mg/dL Lactic Acid 0.9 (0.5-2.0) mmol/L Calcium 9.7 (8.4-10.2) mg/dL Magnesium 1.9 (1.6-2.6) mg/dL Total Bilirubin 0.3 (0.0-1.0) mg/dL Direct Bilirubin 0.1 (0.0-0.5) mg/dL AST 31 (5-31) U/L ALT 26 (0-31) U/L Alkaline Phosphatase 70 (39-117) U/L Total Creatine Kinase 225 H (26-140) U/L C-Reactive Protein 2.37 H (< or = 0.50) mg/dL Total Protein 7.3 (6.5-8.0) g/dL Albumin 4.1 (3.5-5.0) g/dL Beta HCG, Quant < 2 mIU/mL Urine Color Yellow Urine Appearance Clear Urine pH 7.5 (5.0-9.0) Ur Specific [place] 1.010 (1.005-1.025) Urine Protein Negative (Neg-Trace) mg/dL Urine Glucose (UA) Negative (Negative) mg/dL Urine Ketones Negative (Negative) mg/dL Urine Blood Negative (Negative) Urine Nitrite Negative (Negative) Ur Leukocyte Esterase Moderate (2+) H (Negative) Urine RBC 0-2 (0-2) /HPF Urine WBC 6-10 H (0-5) /HPF Ur Squamous Epith Cells 6-10 (0-2) /HPF Urine Bacteria Trace (None Seen) Hyaline Casts 0-2 (0-2) /LPF Urine Opiates Screen POSITIVE H (Not Detect) Ur Buprenorphine Scrn Not Detected (Not Detect) ng/mL Ur Oxycodone Screen Not Detected (Not Detect) ng/mL Urine Methadone Screen Not Detected (Not Detect) ng/mL Urine Fentanyl Screen POSITIVE H (Not Detect) Ur Barbiturates Screen Not Detected (Not Detect) Ur Phencyclidine Scrn Not Detected (Not Detect) Ur Amphetamines Screen Not Detected (Not Detect) U Benzodiazepines Scrn Not Detected (Not Detect) Urine Cocaine Screen POSITIVE H (Not Detect) U Marijuana (THC) Screen Not Detected (Not Detect) Ethyl Alcohol < 10 mg/dL Influenza Type A (PCR) NEGATIVE (Negative) Influenza Type B (PCR) NEGATIVE (Negative) RSV RNA Qual (PCR) NEGATIVE (Negative) SARS-CoV-2 RNA (RT-PCR) NEGATIVE (Negative) Discharge Plan Discharge Clinical Impression: Cellulitis of face, Cellulitis of left upper extremity, Open wound of left forearm, Opioid use disorder Patient Disposition: Admitted As Inpatient
[2025-01-24 02:06] LABS: MANUAL DIFF FLAG NO
[2025-01-24 02:10] LABS: Hematocrit 35.2 % (37.0-47.0); Hemoglobin 11.6 g/dl (12.0-16.0); Imm Gran Abs Auto 0.02 X10*3/uL (0.00-0.03); Imm Gran Pct Auto 0.3 % (0.0-0.4); Lymphocytes Absolute Auto 1.7 X10*3/uL (1.2-4.9); Mean Corpuscular HGB Conc 33.0 g/dl (31.0-35.0); Mean Corpuscular Hemoglobin 29.1 pg (27.0-33.0); Mean Corpuscular Volume 88.4 fL (80.0-98.0); NRBC Abs Auto 0.000 X10*3/uL (0.0-0.012); NRBC Pct Auto 0.0 /100WBC (0.0-0.2); Platelet Count 226 X10*3/uL (160-400); Red Blood Count 3.98 X10*6/uL (4.20-5.50); White Blood Count 6.7 X10*3/uL (4.8-10.8)
--- NOTE | 2025-01-24 02:18 | PC.NURSE ---
Assumed care of pt, presents from triage with a left forearm open abcess with reddness around wound and swelling to the right-side of her face, pt is very lethargic/somnolent, pt stated that she is not IV drug user, but smokes heroin and lasted used this morning, pt constantly nods off during assessment, MD willy at bedside to assess pt
[2025-01-24 02:26] LABS: Alanine Aminotransferase 26 U/L (0-31); Albumin Level 4.1 g/dL (3.5-5.0); Alkaline Phosphatase 70 U/L (39-117); Anion Gap 13 (12-20); Aspartate Amino Transferase 31 U/L (5-31); Blood Urea Nitrogen 12 mg/dL (9-16); Calcium 9.7 mg/dL (8.4-10.2); Carbon Dioxide 30 mmol/L (22-29); Chloride 102 mmol/L (96-108); Creatinine Clr Calc Pharmacy 130.7; Estimated Glomerular Filt Rate > 60; Magnesium 1.9 mg/dL (1.6-2.6); Potassium 3.9 mmol/L (3.3-5.1); Sodium 141 mmol/L (135-145); Total Protein 7.3 g/dL (6.5-8.0)
[2025-01-24] MEDS: vancomycin/NS 2,000 MG/500 ML PLAST..BAG 250 MG IV (02:38)
[2025-01-24 02:48] LABS: Resp Syncy Virus RNA Qual PCR NEGATIVE (Negative); SARS COV2 PCR INHOUSE NEGATIVE (Negative)
[2025-01-24] MEDS: iohexoL 350 MG/ML 100 ML INFUS..BTL 85 ML IV (02:53)
[2025-01-24 03:35] LABS: Appearance Urine Clear; Glucose Urine UA Negative (Negative); PH 7.5 (5.0-9.0); Specific Gravity - Urine 1.010 (1.005-1.025); UMIC TRIGGER UACC YES
[2025-01-24 03:45] LABS: Cannabinoid Screen Urine Not Detected (Not Detect)
[2025-01-24 03:48] LABS: UACC Culture Trigger YES
--- NOTE | 2025-01-24 04:59 | P.HPHOSP_ITS ---
History of Present Illness Date of Service: 01/24/25 Chief Complaint: Skin infection 44-year-old female with a past medical history of opiate dependence; denies IVDA; presented to the hospital with a chief complaint of pain redness of her skin on her right side of the face for the 4 days; and also complains of the wound on her left forearm with surrounding erythema. Patient reports that her left arm wound is been worsening for the past 4 days. Also has discomfort in her face. Denies any headaches or blurry visions. Denies any lightheadedness or dizziness. Denies any numbness tingling or focal weakness. Patient denies IV drug abuse. Mentioned she used heroin and fentanyl-nasally; patient denies any chest pain or palpitations. Denies any GI symptoms. Review of all other systems is negative except mentioned above ER course: Per ER team, patient noted to have right facial erythema with small wounds with granulation tissue; also noted to have open wound on the left forearm with surrounding erythema-no discharge; given IV vancomycin and Zosyn. CT of the face showed superficial soft tissue swelling of the right face without any abscess collection. Multiple dental caries. [facility] Social History Substance Use Type: Crack/Cocaine and Heroin Advance Directives: No Patient : No Meds Allergies Allergy/AdvReac Type Severity Reaction Status Date / Time No Known Allergies (No Known Allergy Verified 01/24/25 01:36 Allergies*) Active Medications: Current Medications Acetaminophen (Acetaminophen 325 Mg Tablet) 650 mg PO Q6H PRN PRN Reason: Pain, Mild 1-3,fever,headache Calcium Carbonate (Calcium Carbonate 750 Mg Tab.Chew) 750 mg PO Q4H PRN PRN Reason: Heartburn Enoxaparin Sodium (Enoxaparin Sodium 40 Mg/0.4 Ml Syringe) 40 mg SUBCUT Q24H [facility] Hydromorphone HCl (Hydromorphone Hcl 1 Mg/Ml Syringe) 0.5 mg IVPUSH Q4H PRN; Protocol PRN Reason: Pain, Severe (Pain Scale 7-10) Lactated Ringer's (Lr) 1,000 mls @ 100 mls/hr IVCONT .Q10H [facility] Magnesium Hydroxide (Milk Of Magnesia 30 Ml Oral.Susp) 30 ml PO DAILY PRN PRN Reason: Constipation Melatonin (Melatonin 3 Mg Tablet) 6 mg PO BEDTIME PRN PRN Reason: Insomnia Pharmacy Consult (Consult Rx Vancomycin Dosing) 1 each MISCELLANE DAILY PRN PRN Reason: Consult order Sodium Chloride (0.9 % Sodium Chloride Flush 3 Ml Syringe) 3 ml IVFLUSH QSHIFT [facility] Physical Exam 2 Vital Signs and Narrative: Vital Signs: Last Vital Signs Temp 98 F 01/24/25 01:28 Pulse 104 H 01/24/25 03:18 Resp 16 01/24/25 03:18 BP 117/74 01/24/25 03:18 Pulse Ox 98 01/24/25 03:18 O2 Del Method Room Air 01/24/25 03:18 BMI result Body Mass Index 26.5 Gen: Appears be in no acute distress HEENT: NCAT, Moist mucosa. Right side of the face noted to have erythema with mild swelling, warm and tender. Pulmonary: Vesicular breath sounds, fair air entry CVS: Normal S1-S2 Abdomen: BS+, Soft, Nontender Extremities: Warm well perfused; left arm forearm wound has surrounding erythema. Neuro: Alert and awake. Results Labs 01/24/25 01:58 01/24/25 01:58 Labs: Laboratory Results - last 24 hr 01/24/25 01/24/25 01/24/25 01:57 01:58 03:29 MCV 88.4 MCH 29.1 MCHC 33.0 RDW 13.5 Plt Count 226 D MPV 11.0 Immature Gran % (Auto) 0.3 Neut % (Auto) 61.4 Lymph % (Auto) 25.6 [place] % (Auto) 8.2 Eos % (Auto) 3.9 Baso % (Auto) 0.6 Lymph # (Auto) 1.7 [place] # (Auto) 0.6 Eos # (Auto) 0.3 Baso # (Auto) 0.0 Abs Immat Gran (auto) 0.02 Absolute Neuts (auto) 4.1 Absolute Nucleated RBC 0.000 Nucleated RBC % (auto) 0.0 Hold Purple Top SEE NOTE Anion Gap 13 Estim Creat Clear Calc 130.7 Estimated GFR > 60 Random Glucose 117 H Lactic Acid 0.9 Calcium 9.7 Magnesium 1.9 Total Bilirubin 0.3 Direct Bilirubin 0.1 AST 31 ALT 26 Alkaline Phosphatase 70 Total Creatine Kinase 225 H C-Reactive Protein 2.37 H Total Protein 7.3 Albumin 4.1 Beta HCG, Quant < 2 Urine Color Yellow Urine Appearance Clear Urine pH 7.5 Ur Specific [place] 1.010 Urine Protein Negative Urine Glucose (UA) Negative Urine Ketones Negative Urine Blood Negative Urine Nitrite Negative Ur Leukocyte Esterase Moderate (2+) H Urine RBC 0-2 Urine WBC 6-10 H Ur Squamous Epith Cells 6-10 Urine Bacteria Trace Hyaline Casts 0-2 Urine Opiates Screen POSITIVE H Ur Buprenorphine Scrn Not Detected Ur Oxycodone Screen Not Detected Urine Methadone Screen Not Detected Urine Fentanyl Screen POSITIVE H Ur Barbiturates Screen Not Detected Ur Phencyclidine Scrn Not Detected Ur Amphetamines Screen Not Detected U Benzodiazepines Scrn Not Detected Urine Cocaine Screen POSITIVE H U Marijuana (THC) Screen Not Detected Ethyl Alcohol < 10 Influenza Type A (PCR) NEGATIVE Influenza Type B (PCR) NEGATIVE RSV RNA Qual (PCR) NEGATIVE SARS-CoV-2 RNA (RT-PCR) NEGATIVE Assessment and Plan (1) Cellulitis of face: Status: Acute (2) Cellulitis of left upper extremity: Status: Acute Plan 44-year-old female with a past medical history of opiate dependence; denies IVDA; presented to the hospital with a chief complaint of pain redness of her skin on her right side of the face for the 4 days; and also complains of the wound on her left forearm. Noted to have cellulitis. Left forearm wound/cellulitis: Right facial cellulitis: No drainable abscess on the CT of the face. Will obtain right forearm ultrasound Continue vancomycin and Zosyn ID consult for further recommendations Opiate dependence: Patient is not fentanyl and heroin. Monitor on cows protocol. Addiction medicine consult. DVT prophylaxis: Lovenox Code status: Full code Quality Stroke Does the patient have a stroke diagnosis?: No VTE Prior VTE?: No VTE Risk Level:: Medical - moderate - high VTE Device Contraindication: Treatment Not Indicated VTE Drug Contraindication: N/A - Med Ordered
[2025-01-24] MEDS: Lactated Ringers 1,000 ML 100 ML IVCONT ×2 (05:37→20:30)
--- NOTE | 2025-01-24 06:16 | MHC.EDTECH ---
Pt very sleepy, unable to wake to answer t/w to gather information about belongings to do belongings list in chart. T/w tried several times to wake Pt unsuccessfully. RN aware. Vital signs up to date, call gallardo within reach
--- NOTE | 2025-01-24 06:52 | PHA.PROG ---
Admission Date/Time: January 24, 2025 04:52 Indication: Skin Weight in k.8 kg Adjusted body weight in Kg: [place] body weight in Kg: Obesity Dosing Indication % IBW: Serum Creatinine - Last 168 Hours 01/24/25 01:58 Creatinine 0.66 Estimated CrCl and GFR - Last 168 Hours 01/24/25 01:58 Estim Creat Clear Calc 130.7 Estimated GFR > 60 Vancomycin Loading Dose: 2000 mg Current Vancomycin Dosing Regimen: 1250 mg Q12H Vancomycin Monitoring using AUC goal of 400 - 600 range with trough as surrogate marker: Predicted AUC 473 and trough 13.9 Date and Time for next Vancomycin Level to be drawn: 01/25 @1200 Pharmacist Comments on Vancomycin Plan: Vancomycin dosing will take advantage of [employer] as a clinical decision support tool that uses Bayesian modeling to calculate individual patient's pharmacokinetic parameters and forecast the patient's drug concentration time course with the target goal AUC 24 range of 400 - 600 mg/L/hr.
[2025-01-24 08:01] LABS: MANUAL DIFF FLAG NO
[2025-01-24 08:07] LABS: Hematocrit 32.1 % (37.0-47.0); Hemoglobin 10.5 g/dl (12.0-16.0); Imm Gran Abs Auto 0.01 X10*3/uL (0.00-0.03); Imm Gran Pct Auto 0.2 % (0.0-0.4); Lymphocytes Absolute Auto 1.4 X10*3/uL (1.2-4.9); Mean Corpuscular HGB Conc 32.7 g/dl (31.0-35.0); Mean Corpuscular Hemoglobin 29.5 pg (27.0-33.0); Mean Corpuscular Volume 90.2 fL (80.0-98.0); NRBC Abs Auto 0.000 X10*3/uL (0.0-0.012); NRBC Pct Auto 0.0 /100WBC (0.0-0.2); Platelet Count 196 X10*3/uL (160-400); Red Blood Count 3.56 X10*6/uL (4.20-5.50); White Blood Count 5.4 X10*3/uL (4.8-10.8)
[2025-01-24 08:22] LABS: Anion Gap 9 (12-20); Blood Urea Nitrogen 8 mg/dL (9-16); Calcium 8.6 mg/dL (8.4-10.2); Carbon Dioxide 27 mmol/L (22-29); Chloride 110 mmol/L (96-108); Creatinine Clr Calc Pharmacy 137.0; Estimated Glomerular Filt Rate > 60; Potassium 4.0 mmol/L (3.3-5.1); Sodium 142 mmol/L (135-145)
--- NOTE | 2025-01-24 09:00 | PC.NURSE ---
Care of Pt assumed at change of shift. Pt sleeps soundly until approx 0850. U/S at bedside for imaging. Addiction Medicine and Pharmacy staff meet with Pt. Hospitalist at bedside now. Pt awaiting inpatient bed assignment.
--- NOTE | 2025-01-24 09:14 | PHA.MEDREC ---
Pharmacy Consult ? Medication Reconciliation Pharmacy has completed the medication reconciliation. Pt is not on any medications except OTC pain meds.
[2025-01-24] MEDS: methADONE HCl 20 MG/2 ML ORAL.CONC PO (09:37)
--- NOTE | 2025-01-24 10:26 | HO.NURTONUR ---
44 yr old female admitted for cellulitis of face and LUE IV Abx for management. ID consult ordered. Seen by Recovery and Methadone 20mg given in ED. A&Ox3 VSS, afebrile. Independent ambulation and feedings. 18g to RAC LR running at 100 ml/hr.
--- NOTE | 2025-01-24 11:28 | P.PNIM_ITS ---
Subjective Subjective Date of Service: 01/24/25 Interval History: Pt seen evaluated in the ED for facial at left forearm wounds Complains of left forearm pain Snorts 2 bags of heroin daily; denies ever using IV States wound on face and arm began as a ?pimple? 1 week ago and then just grew Not on Suboxone or methadone Review of Systems Review of Systems: Yes all other systems are reviewed and are negative Physical Exam 2 Exam: Exam: General: AOx3, no acute distress. Somnolent but arousable. Face: Right facial erythema and sore as pictured below Resp: CTA bilaterally CVS: S1, S2, RRR GI: +BS, NT, no distention Skin: Warm, dry Neuro: Cranial nerves II-XII grossly intact bilaterally. Motor grossly intact bilaterally Extremities: Left forearm as pictured below Psych: Appropriate affect Vital Signs: Vital Signs: Last Vital Signs Temp 98.6 F 01/24/25 11:21 Pulse 101 H 01/24/25 11:21 Resp 17 01/24/25 11:21 BP 133/72 01/24/25 11:21 Pulse Ox 97 01/24/25 11:21 O2 Del Method Room Air 01/24/25 11:21 BMI result Body Mass Index 26.5 Objective Data Active Medications Acetaminophen (Acetaminophen 325 Mg Tablet) 650 mg PO Q6H PRN PRN Reason: Pain, Mild 1-3,fever,headache Calcium Carbonate (Calcium Carbonate 750 Mg Tab.Chew) 750 mg PO Q4H PRN PRN Reason: Heartburn Enoxaparin Sodium (Enoxaparin Sodium 40 Mg/0.4 Ml Syringe) 40 mg SUBCUT Q24H [facility] Last Admin: 01/24/25 09:36 Dose: 40 mg Documented By: OLGA Hydromorphone HCl (Hydromorphone Hcl 1 Mg/Ml Syringe) 0.5 mg IVPUSH Q4H PRN; Protocol PRN Reason: Pain, Severe (Pain Scale 7-10) Lactated Ringer's (Lr) 1,000 mls @ 100 mls/hr IVCONT .Q10H [facility] Last Infusion: 01/24/25 10:22 Dose: 100 mls/hr Documented By: OLGA Piperacillin Sod/Tazobactam (Sod 3.375 gm/ Sodium Chloride) 50 mls @ 100 mls/hr IV Q6H [facility] Last Infusion: 01/24/25 10:22 Dose: Infused Documented By: OLGA Vancomycin HCl 1,250 mg/ (Sodium Chloride) 250 mls @ 166.667 mls/hr IV Q12H [facility] Magnesium Hydroxide (Milk Of Magnesia 30 Ml Oral.Susp) 30 ml PO DAILY PRN PRN Reason: Constipation Melatonin (Melatonin 3 Mg Tablet) 6 mg PO BEDTIME PRN PRN Reason: Insomnia Pharmacy Consult (Consult Rx Vancomycin Dosing) 1 each MISCELLANE DAILY PRN PRN Reason: Consult order Sodium Chloride (0.9 % Sodium Chloride Flush 3 Ml Syringe) 3 ml IVFLUSH QSHIFT [facility] Last Admin: 01/24/25 07:04 Dose: Not Given Documented By: OLGA Non-Admin Reason: IV Running Labs 01/24/25 07:50 01/24/25 07:50 Labs: Laboratory Results - last 24 hr 01/24/25 01/24/25 01/24/25 01:57 01:58 03:29 MCV 88.4 MCH 29.1 MCHC 33.0 RDW 13.5 Plt Count 226 D MPV 11.0 Immature Gran % (Auto) 0.3 Neut % (Auto) 61.4 Lymph % (Auto) 25.6 [place] % (Auto) 8.2 Eos % (Auto) 3.9 Baso % (Auto) 0.6 Lymph # (Auto) 1.7 [place] # (Auto) 0.6 Eos # (Auto) 0.3 Baso # (Auto) 0.0 Abs Immat Gran (auto) 0.02 Absolute Neuts (auto) 4.1 Absolute Nucleated RBC 0.000 Nucleated RBC % (auto) 0.0 Hold Purple Top SEE NOTE Anion Gap 13 Estim Creat Clear Calc 130.7 Estimated GFR > 60 Random Glucose 117 H Lactic Acid 0.9 Calcium 9.7 Magnesium 1.9 Total Bilirubin 0.3 Direct Bilirubin 0.1 AST 31 ALT 26 Alkaline Phosphatase 70 Total Creatine Kinase 225 H C-Reactive Protein 2.37 H Total Protein 7.3 Albumin 4.1 Beta HCG, Quant < 2 Urine Color Yellow Urine Appearance Clear Urine pH 7.5 Ur Specific [place] 1.010 Urine Protein Negative Urine Glucose (UA) Negative Urine Ketones Negative Urine Blood Negative Urine Nitrite Negative Ur Leukocyte Esterase Moderate (2+) H Urine RBC 0-2 Urine WBC 6-10 H Ur Squamous Epith Cells 6-10 Urine Bacteria Trace Hyaline Casts 0-2 Urine Opiates Screen POSITIVE H Ur Buprenorphine Scrn Not Detected Ur Oxycodone Screen Not Detected Urine Methadone Screen Not Detected Urine Fentanyl Screen POSITIVE H Ur Barbiturates Screen Not Detected Ur Phencyclidine Scrn Not Detected Ur Amphetamines Screen Not Detected U Benzodiazepines Scrn Not Detected Urine Cocaine Screen POSITIVE H U Marijuana (THC) Screen Not Detected Ethyl Alcohol < 10 Influenza Type A (PCR) NEGATIVE Influenza Type B (PCR) NEGATIVE RSV RNA Qual (PCR) NEGATIVE SARS-CoV-2 RNA (RT-PCR) NEGATIVE 01/24/25 07:50 MCV 90.2 MCH 29.5 MCHC 32.7 RDW 13.5 Plt Count 196 MPV 10.8 Immature Gran % (Auto) 0.2 Neut % (Auto) 58.2 Lymph % (Auto) 26.9 [place] % (Auto) 10.6 Eos % (Auto) 3.5 Baso % (Auto) 0.6 Lymph # (Auto) 1.4 [place] # (Auto) 0.6 Eos # (Auto) 0.2 Baso # (Auto) 0.0 Abs Immat Gran (auto) 0.01 Absolute Neuts (auto) 3.1 Absolute Nucleated RBC 0.000 Nucleated RBC % (auto) 0.0 Hold Purple Top Anion Gap 9 L Estim Creat Clear Calc 137.0 Estimated GFR > 60 Random Glucose 114 Lactic Acid Calcium 8.6 D Magnesium Total Bilirubin Direct Bilirubin AST ALT Alkaline Phosphatase Total Creatine Kinase C-Reactive Protein Total Protein Albumin Beta HCG, Quant Urine Color Urine Appearance Urine pH Ur Specific [place] Urine Protein Urine Glucose (UA) Urine Ketones Urine Blood Urine Nitrite Ur Leukocyte Esterase Urine RBC Urine WBC Ur Squamous Epith Cells Urine Bacteria Hyaline Casts Urine Opiates Screen Ur Buprenorphine Scrn Ur Oxycodone Screen Urine Methadone Screen Urine Fentanyl Screen Ur Barbiturates Screen Ur Phencyclidine Scrn Ur Amphetamines Screen U Benzodiazepines Scrn Urine Cocaine Screen U Marijuana (THC) Screen Ethyl Alcohol Influenza Type A (PCR) Influenza Type B (PCR) RSV RNA Qual (PCR) SARS-CoV-2 RNA (RT-PCR) Assessment and Plan (1) Cellulitis of face: Status: Acute (2) Cellulitis of left upper extremity: Status: Acute (3) Open wound of left forearm: Status: Acute Plan 44-year-old female with a past medical history of opiate dependence; denies IVDA; presented to the hospital with a chief complaint of pain redness of her skin on her right side of the face for the 4 days; and also complains of the wound on her left forearm. Noted to have cellulitis. Left forearm wound/cellulitis: Right facial cellulitis: No drainable abscess on the CT of the face Right forearm ultrasound was soft tissue edema but no obvious fluid collection or abscess Continue vancomycin and Zosyn , day 2 General surgery consult for possible debridement ID consult for further recommendations Opiate dependence Reports starts to bags of heroin daily Denies IVDU Not on Suboxone or methadone Monitor on COWS protocol Addiction medicine consult. DVT prophylaxis: Lovenox Code status: Full code Pt requires continued hospitalization due to the need for IV antibiotics as well as additional input from specialist consultation with Infectious Disease and General surgery. Quality Stroke Does the patient have a stroke diagnosis?: No VTE Prior VTE?: No VTE Risk Level:: Medical - moderate - high VTE Device Contraindication: Treatment Not Indicated VTE Drug Contraindication: N/A - Med Ordered
--- NOTE | 2025-01-24 11:29 | MHC.RECOVRN ---
Addendum entered by Concha Martinez RN 01/24/25 11:35: Tw contacted by pt's primary RN t approximately 1015am. RN reports pt feels her methadone dose is not adequate enough as she is still experiencing symptoms of withdrawal. Addiction Medicine provider contacted and additional 10mg methadone PRN ordered. ACS team to continue to follow and will complete recovery evaluation once pt is comfortable and withdrawal symptoms are managed. Original Note: Tw met with pt at 9am to assess for withdrawal symptoms after consult placed to Addiction Medicine for substance use. [facility] in [facility], in no apparent distress, repirations even and unlabored. Pt reports smoking 2bags of heroin/fentanyl daily for many years . SHe reports experiencing irritability, nauseau, and tremors. Discussed w/ Addiction Medicine provider who agreed to initiate pt on 20mg methadone. Pt agrees to attend [facility] discharge for community dosing. To be established by TW.
--- NOTE | 2025-01-24 12:20 | P.CONGS_ITS ---
History of Present Illness Consult details Consult date: 01/24/25 <Sravanthi Oneill PA-C - Last Filed: 01/24/25 12:23> Reason for consult: wound care <JULES Elaine Last Filed: 01/24/25 12:23> Requesting physician: Laly Larose <JULES Elaine Last Filed: 01/24/25 12:23> Narrative: 44-year-old female with a past medical history of opiate dependence who presented to the ED with a chief complaint of left forearm pain and open wound along with redness and pain on the right side of the face for the past 4 days. <JULES Elaine Last Filed: 01/24/25 12:23> 44-year-old female with a past medical history of opiate dependence who presented to the ED with a chief complaint of left forearm pain and open wound along with redness and pain on the right side of the face for the past 4 days. states both of these wounds have been very painful, draining pus. subjective fevers at home. There was no cause to the forearm wound, though she does state that she tried to pop a zit on her face. there was no drainable fluid collection seen on CT of the head. Right forearm US showing inflammatory changes with soft tissue edema but no fluid collection. She denies IV drug use, admits to heroin use intranasally. <Sudhakar Bustamante PA-C - Last Filed: 01/24/25 14:15> [facility] Social History Social History: Social History Substance Use Type: Crack/Cocaine and Heroin Advance Directives: No Patient : No <JULES Elaine Last Filed: 01/24/25 12:23> Meds Allergies/Adverse reactions: Allergies Allergy/AdvReac Type Severity Reaction Status Date / Time No Known Allergies (No Known Allergy Verified 01/24/25 01:36 Allergies*) <JULES Elaine Last Filed: 01/24/25 12:23> Active Medications: Current Medications Acetaminophen (Acetaminophen 325 Mg Tablet) 650 mg PO Q6H PRN PRN Reason: Pain, Mild 1-3,fever,headache Calcium Carbonate (Calcium Carbonate 750 Mg Tab.Chew) 750 mg PO Q4H PRN PRN Reason: Heartburn Enoxaparin Sodium (Enoxaparin Sodium 40 Mg/0.4 Ml Syringe) 40 mg SUBCUT Q24H [facility] Last Admin: 01/24/25 09:36 Dose: 40 mg Hydromorphone HCl (Hydromorphone Hcl 1 Mg/Ml Syringe) 0.5 mg IVPUSH Q4H PRN; Protocol PRN Reason: Pain, Severe (Pain Scale 7-10) Lactated Ringer's (Lr) 1,000 mls @ 100 mls/hr IVCONT .Q10H [facility] Last Infusion: 01/24/25 10:22 Dose: 100 mls/hr Piperacillin Sod/Tazobactam (Sod 3.375 gm/ Sodium Chloride) 50 mls @ 100 mls/hr IV Q6H [facility] Last Infusion: 01/24/25 10:22 Dose: Infused Vancomycin HCl 1,250 mg/ (Sodium Chloride) 250 mls @ 166.667 mls/hr IV Q12H [facility] Magnesium Hydroxide (Milk Of Magnesia 30 Ml Oral.Susp) 30 ml PO DAILY PRN PRN Reason: Constipation Melatonin (Melatonin 3 Mg Tablet) 6 mg PO BEDTIME PRN PRN Reason: Insomnia Methadone HCl (Methadone Hcl 20 Mg/2 Ml Oral.Conc) 10 mg PO DAILY PRN PRN Reason: Opiate Withdrawal Pharmacy Consult (Consult Rx Vancomycin Dosing) 1 each MISCELLANE DAILY PRN PRN Reason: Consult order Sodium Chloride (0.9 % Sodium Chloride Flush 3 Ml Syringe) 3 ml IVFLUSH QSHIFT [facility] Last Admin: 01/24/25 07:04 Dose: Not Given <Sravanthi Oneill PA-C - Last Filed: 01/24/25 12:23> Home medications: Home Medications ?Medication ?Instructions ?Recorded ?Confirmed ?Last Taken ?Type acetaminophen 325 mg tablet 650 mg PO QID PRN Pain 05/1601/24/25 Unknown History (Tylenol) ibuprofen 200 mg tablet 400 mg PO Q6H PRN Pain 01/2401/24/25 Unknown History <Sravanthi Oneill PA-C - Last Filed: 01/24/25 12:23> Physical Exam 2 Vital Signs: Vital Signs: Last Vital Signs Temp 98.6 F 01/24/25 11:21 Pulse 101 H 01/24/25 11:21 Resp 17 01/24/25 11:21 BP 133/72 01/24/25 11:21 Pulse Ox 97 01/24/25 11:21 O2 Del Method Room Air 01/24/25 11:21 BMI result Body Mass Index 26.5 <JULES Elaine Last Filed: 01/24/25 12:23> Const: General: no acute distress; No comfortable (Appears to be withdrawing) <JULES Pisano Last Filed: 01/24/25 14:15> Orientation/consciousness: oriented to person and oriented to place <JULES Pisano Last Filed: 01/24/25 14:15> Skin: Other: Left forearm: 2.5 x 2.5 cm open wound on the forearm with some thick scabbing. Exquisitely tender to touch. Surrounding edema and erythema extending distally towards the hand. No palpable fluid collection, was able to express some scant amounts purulent fluid. No necrosis Right-sided face: Small 1 cm wound a small opening in the centrum surrounded by scabbing. Scant purulent drainage. Tender to palpation. No palpable fluid collection mildly edematous <JULES Pisano Last Filed: 01/24/25 14:15> Neuro: General: oriented to person and oriented to place <JULES Pisano Last Filed: 01/24/25 14:15> Results Labs Result diagrams: 01/24/25 07:50 01/24/25 07:50 <JULES Elaine Last Filed: 01/24/25 12:23> Labs: Abnormal lab results 01/24/25 01/24/25 01/24/25 Range/Units 01:58 03:29 07:50 RBC 3.98 L 3.56 L (4.20-5.50) X10*6/uL Hgb 11.6 L 10.5 L (12.0-16.0) g/dl Hct 35.2 L 32.1 L (37.0-47.0) % Chloride 110 H (96-108) mmol/L Carbon Dioxide 30 H (22-29) mmol/L Anion Gap 9 L (12-20) BUN 8 L (9-16) mg/dL Random Glucose 117 H (60-115) mg/dL Total Creatine Kinase 225 H (26-140) U/L C-Reactive Protein 2.37 H (< or = 0.50) mg/dL Ur Leukocyte Esterase Moderate (2+) H (Negative) Urine WBC 6-10 H (0-5) /HPF Urine Opiates Screen POSITIVE H (Not Detect) Urine Fentanyl Screen POSITIVE H (Not Detect) Urine Cocaine Screen POSITIVE H (Not Detect) Short CBC 01/24/25 01/24/25 Range/Units 01:58 07:50 WBC 6.7 5.4 (4.8-10.8) X10*3/uL Hgb 11.6 L 10.5 L (12.0-16.0) g/dl Hct 35.2 L 32.1 L (37.0-47.0) % Plt Count 226 D 196 (160-400) X10*3/uL BMP 01/24/25 01/24/25 01:58 07:50 Sodium 141 142 Potassium 3.9 4.0 Chloride 102 110 H Carbon Dioxide 30 H 27 BUN 12 8 L Creatinine 0.66 0.63 Calcium 9.7 8.6 D Cardiac Enzymes 01/24/25 Range/Units 01:58 Total Creatine Kinase 225 H (26-140) U/L Liver Function 01/24/25 Range/Units 01:58 Total Bilirubin 0.3 (0.0-1.0) mg/dL Direct Bilirubin 0.1 (0.0-0.5) mg/dL AST 31 (5-31) U/L ALT 26 (0-31) U/L Alkaline Phosphatase 70 (39-117) U/L Albumin 4.1 (3.5-5.0) g/dL Urine 01/24/25 Range/Units 03:29 Urine Color Yellow Urine Appearance Clear Urine pH 7.5 (5.0-9.0) Ur Specific [place] 1.010 (1.005-1.025) Urine Protein Negative (Neg-Trace) mg/dL Urine Glucose (UA) Negative (Negative) mg/dL All other labs normal. <Sravanthi Oneill PA-C - Last Filed: 01/24/25 12:23> Assessment and Plan (1) Cellulitis of face: Status: Acute <Sravanthi Oneill PA-C - Last Filed: 01/24/25 12:23> (2) Cellulitis of left upper extremity: Status: Acute <Sravanthi Oneill PA-C - Last Filed: 01/24/25 12:23> 44-year-old female with a past medical history of opiate dependence who presented to the ED with a chief complaint of left forearm pain and open wound along with redness and pain on the right side of the face for the past 4 days. These have been becoming increasingly painful, draining purulent fluid. Imaging did not show any fluid collection to be drained. She has been started On exam the left forearm wound is about 2.5 x 2.5 cm, with some significant edema and erythema surrounding. There was a thick scab on the wound borders and central area that was able to drain some amounts of pus. I expressed this with palpation, but was unable to appreciate a fluid collection to be drained. At some point this may need debridement. On IV antibiotics but patient was unable to tolerate even light palpation to this area. I dressed this for now with wet-to-dry to try and soften this scabbing for possible mechanical debridement. Right facial wound the smaller, less painful. It is edematous as similar scabbing. I was able to again express some scant purulent fluid but was limited by the patient's pain. We will leave this open for now until seen by wound care for their recommendations. We will continue to follow up for any fluid collection development or areas that need to be debrided as patient's pain is more controlled in the cellulitis of the surrounding areas improves Continue IV antibiotics Recommend Warm compress to both wounds Left arm wound: Wet-to-dry gauze wrapping Kerlix Right facial wound: Pending wound care recommendations. Wound care consult pending <Sudhakar Bustamante PA-C - Last Filed: 01/24/25 14:15> 44-year-old female with a past medical history of opiate dependence who presented to the ED with a chief complaint of left forearm pain and open wound along with redness and pain on the right side of the face for the past 4 days. These have been becoming increasingly painful, draining purulent fluid. Imaging did not show any fluid collection to be drained. On exam the left forearm wound is about 2.5 x 2.5 cm, with some significant edema and erythema surrounding. There was a thick scab on the wound borders and central area that was able to drain some amounts of pus. I expressed this with palpation, but was unable to appreciate a fluid collection to be drained. At some point this may need debridement. On IV antibiotics but patient was unable to tolerate even light palpation to this area. I dressed this for now with wet-to-dry to try and soften this scabbing for possible mechanical debridement. Right facial wound the smaller, less painful. It is edematous as similar scabbing. I was able to again express some scant purulent fluid but was limited by the patient's pain. We will leave this open for now until seen by wound care for their recommendations. We will continue to follow up for any fluid collection development or areas that need to be debrided as patient's pain is more controlled in the cellulitis of the surrounding areas improves Continue IV antibiotics Recommend Warm compress to both wounds Left arm wound: Wet-to-dry gauze wrapping Kerlix Right facial wound: Pending wound care recommendations. Wound care consult pending Patient seen and examined and I agree with the above assessment and plan. Agree with antibiotics and local wound care. Await input from wound care team. <Randy Ortega MD - Last Filed: 01/24/25 14:34> Procedures Date of Service Date of Service: 01/24/25 <Sravanthi Oneill PA-C - Last Filed: 01/24/25 12:23> 01/24/25 <Sudhakar Bustamante PA-C - Last Filed: 01/24/25 14:15> 01/24/25 <Randy Ortega MD - Last Filed: 01/24/25 14:34>
--- NOTE | 2025-01-24 12:37 | HO.ADDICT_ITS ---
History of Present Illness Date of Service: 01/24/2025 Chief Complaint: facial cellulitis Reason for Consult: OUD Sources of Information: chart reviewed HPI Narrative: Patient is a 44 year old female medically admitted with cellulitis of the face and forearm. Consult requested as patient reported current substance use. Information obtained via chart review as patient resting comfortably (after medication administration) when t/w attempted to meet. Patient seen by fish farm laborer earlier today, and reported using 2-3 bags of fentanyl daily She was c/o withdrawal sx, and agreeable to methadone initiation. When seen by t/w patient was resting comfortably, opened eyes briefly to voice, then back to sleep. She appeared unkempt. No restlessness noted. Slightly diaphoretic. VS reviewed--tachycardic 107-110 while sleeping Mass pat reviewed--patient previously prescribe Buprenorphine-most recently April 2024. Labs reviewed-UDS +cocaine, fentanyl No documented HIV or hepatitis screen Medical Evaluation Reviewed: Yes Review of Systems Review of Systems Yes Unobtainable due to mental status (sleeping ) Diagnostics Vital Signs (24Hr): Vital Signs - 24 hr 01/24/25 01:28 01/24/25 03:18 01/24/25 06:05 Temperature 98 F 98.8 F Pulse Rate 107 H 104 H 98 Respiratory Rate 12 16 15 Blood Pressure 121/65 117/74 118/73 Pulse Oximetry 97 98 98 Oxygen Delivery Method Room Air Room Air Room Air 01/24/25 07:07 01/24/25 11:21 Temperature 98.6 F Pulse Rate 89 101 H Respiratory Rate 15 17 Blood Pressure 111/65 133/72 Pulse Oximetry 98 97 Oxygen Delivery Method Room Air Room Air BMI result Body Mass Index 26.5 Labs 01/24/25 07:50 01/24/25 07:50 Labs: Laboratory Results - last 48 hr 01/24/25 01/24/25 01/24/25 01:57 01:58 03:29 WBC 6.7 RBC 3.98 L Hgb 11.6 L Hct 35.2 L MCV 88.4 MCH 29.1 MCHC 33.0 RDW 13.5 Plt Count 226 D MPV 11.0 Immature Gran % (Auto) 0.3 Neut % (Auto) 61.4 Lymph % (Auto) 25.6 [place] % (Auto) 8.2 Eos % (Auto) 3.9 Baso % (Auto) 0.6 Lymph # (Auto) 1.7 [place] # (Auto) 0.6 Eos # (Auto) 0.3 Baso # (Auto) 0.0 Abs Immat Gran (auto) 0.02 Absolute Neuts (auto) 4.1 Absolute Nucleated RBC 0.000 Nucleated RBC % (auto) 0.0 Hold Purple Top SEE NOTE Sodium 141 Potassium 3.9 Chloride 102 Carbon Dioxide 30 H Anion Gap 13 BUN 12 Creatinine 0.66 Estim Creat Clear Calc 130.7 Estimated GFR > 60 Random Glucose 117 H Lactic Acid 0.9 Calcium 9.7 Magnesium 1.9 Total Bilirubin 0.3 Direct Bilirubin 0.1 AST 31 ALT 26 Alkaline Phosphatase 70 Total Creatine Kinase 225 H C-Reactive Protein 2.37 H Total Protein 7.3 Albumin 4.1 Beta HCG, Quant < 2 Urine Color Yellow Urine Appearance Clear Urine pH 7.5 Ur Specific [place] 1.010 Urine Protein Negative Urine Glucose (UA) Negative Urine Ketones Negative Urine Blood Negative Urine Nitrite Negative Ur Leukocyte Esterase Moderate (2+) H Urine RBC 0-2 Urine WBC 6-10 H Ur Squamous Epith Cells 6-10 Urine Bacteria Trace Hyaline Casts 0-2 Urine Opiates Screen POSITIVE H Ur Buprenorphine Scrn Not Detected Ur Oxycodone Screen Not Detected Urine Methadone Screen Not Detected Urine Fentanyl Screen POSITIVE H Ur Barbiturates Screen Not Detected Ur Phencyclidine Scrn Not Detected Ur Amphetamines Screen Not Detected U Benzodiazepines Scrn Not Detected Urine Cocaine Screen POSITIVE H U Marijuana (THC) Screen Not Detected Ethyl Alcohol < 10 Influenza Type A (PCR) NEGATIVE Influenza Type B (PCR) NEGATIVE RSV RNA Qual (PCR) NEGATIVE SARS-CoV-2 RNA (RT-PCR) NEGATIVE 01/24/25 07:50 WBC 5.4 RBC 3.56 L Hgb 10.5 L Hct 32.1 L MCV 90.2 MCH 29.5 MCHC 32.7 RDW 13.5 Plt Count 196 MPV 10.8 Immature Gran % (Auto) 0.2 Neut % (Auto) 58.2 Lymph % (Auto) 26.9 [place] % (Auto) 10.6 Eos % (Auto) 3.5 Baso % (Auto) 0.6 Lymph # (Auto) 1.4 [place] # (Auto) 0.6 Eos # (Auto) 0.2 Baso # (Auto) 0.0 Abs Immat Gran (auto) 0.01 Absolute Neuts (auto) 3.1 Absolute Nucleated RBC 0.000 Nucleated RBC % (auto) 0.0 Hold Purple Top Sodium 142 Potassium 4.0 Chloride 110 H Carbon Dioxide 27 Anion Gap 9 L BUN 8 L Creatinine 0.63 Estim Creat Clear Calc 137.0 Estimated GFR > 60 Random Glucose 114 Lactic Acid Calcium 8.6 D Magnesium Total Bilirubin Direct Bilirubin AST ALT Alkaline Phosphatase Total Creatine Kinase C-Reactive Protein Total Protein Albumin Beta HCG, Quant Urine Color Urine Appearance Urine pH Ur Specific [place] Urine Protein Urine Glucose (UA) Urine Ketones Urine Blood Urine Nitrite Ur Leukocyte Esterase Urine RBC Urine WBC Ur Squamous Epith Cells Urine Bacteria Hyaline Casts Urine Opiates Screen Ur Buprenorphine Scrn Ur Oxycodone Screen Urine Methadone Screen Urine Fentanyl Screen Ur Barbiturates Screen Ur Phencyclidine Scrn Ur Amphetamines Screen U Benzodiazepines Scrn Urine Cocaine Screen U Marijuana (THC) Screen Ethyl Alcohol Influenza Type A (PCR) Influenza Type B (PCR) RSV RNA Qual (PCR) SARS-CoV-2 RNA (RT-PCR) Imaging Radiology Impressions: ITS Impressions Extremity Ultrasound 01/24/25 09:05 IMPRESSION: Soft tissue edema associated with increased vascularity at the location of concern in the distal/lateral forearm wound. No obvious fluid collection/abscess. Electronically signed by: Milton Woods MD 01/24/2025 09:44 AM [facility] [place] Status Exam Mental Status Exam Patient Appearance: Unkempt Level of Consciousness: Appropriate (sleeping ) Medications Medications Current Medications Acetaminophen (Acetaminophen 325 Mg Tablet) 650 mg PO Q6H PRN PRN Reason: Pain, Mild 1-3,fever,headache Calcium Carbonate (Calcium Carbonate 750 Mg Tab.Chew) 750 mg PO Q4H PRN PRN Reason: Heartburn Enoxaparin Sodium (Enoxaparin Sodium 40 Mg/0.4 Ml Syringe) 40 mg SUBCUT Q24H [facility] Last Admin: 01/24/25 09:36 Dose: 40 mg Hydromorphone HCl (Hydromorphone Hcl 1 Mg/Ml Syringe) 0.5 mg IVPUSH Q4H PRN; Protocol PRN Reason: Pain, Severe (Pain Scale 7-10) Lactated Ringer's (Lr) 1,000 mls @ 100 mls/hr IVCONT .Q10H [facility] Last Infusion: 01/24/25 10:22 Dose: 100 mls/hr Piperacillin Sod/Tazobactam (Sod 3.375 gm/ Sodium Chloride) 50 mls @ 100 mls/hr IV Q6H [facility] Last Infusion: 01/24/25 10:22 Dose: Infused Vancomycin HCl 1,250 mg/ (Sodium Chloride) 250 mls @ 166.667 mls/hr IV Q12H [facility] Magnesium Hydroxide (Milk Of Magnesia 30 Ml Oral.Susp) 30 ml PO DAILY PRN PRN Reason: Constipation Melatonin (Melatonin 3 Mg Tablet) 6 mg PO BEDTIME PRN PRN Reason: Insomnia Methadone HCl (Methadone Hcl 20 Mg/2 Ml Oral.Conc) 10 mg PO DAILY PRN PRN Reason: Opiate Withdrawal Pharmacy Consult (Consult Rx Vancomycin Dosing) 1 each MISCELLANE DAILY PRN PRN Reason: Consult order Sodium Chloride (0.9 % Sodium Chloride Flush 3 Ml Syringe) 3 ml IVFLUSH QSHIFT [facility] Last Admin: 01/24/25 07:04 Dose: Not Given Allergies Allergies Allergy/AdvReac Type Severity Reaction Status Date / Time No Known Allergies (No Known Allergy Verified 01/24/25 01:36 Allergies*) Assessment & Plan Assessment & Plan (1) Opioid use disorder: Status: Acute Code(s): F11.90 - Opioid use, unspecified, uncomplicated Assessment and Plan: * methadone 20mg administered with positive effect --dose based on patient report of using 2-3 bags QD * methadone 10mg PRN dose in place for any ongoing withdrawal sx. AM dose 30mg * clonidine, hydroxyzine PRN for anxiety and restlessness * HIV and Hepatitis screens * fish farm laborer to coordinate referral to [facility] Total time managing care of this patient today ___25_ minutes. [facility] Social History Social History Substance Use Type: Crack/Cocaine and Heroin Advance Directives: No Patient : No
--- NOTE | 2025-01-24 16:53 | PC.NURSE ---
attempted to do admission assessment with patient, but patient difficult to keep awake. was able to partially answer some admission questions appropriately. Too drowsy to follow commands at this time. hospitalist notified.
--- NOTE | 2025-01-24 18:08 | PC.NURSE ---
Upon admission to the unit, a crack pipe and vape was found. Security called and items taken, vape, crack pipe was disposed of in sharps container.
--- NOTE | 2025-01-24 18:36 | PC.NURSE ---
Patient declined to participate in reviewing medical/surgical history upon admission.
[2025-01-24] MEDS: 0.9 % Sodium Chloride Flush 3 ML SYRINGE IVFLUSH (20:27)
--- NOTE | 2025-01-25 00:48 | P.CNID_ITS ---
History of Present Illness Data of Consult Service Date: 01/24/25 Primary Care Provider: Alysia Proctor MD [facility] Reason for consult: right facial erythema She presents with facia; erythema right nasolabial fold over last week. Sh has no fever or chilll at this time PMFSH Past Medical History Patient : No Social History Social History Household Members: None Housing: House Do you presently have visiting nurse or other home services: No Patient Tobacco Use Status: Never used Tobacco e-Cigarette/Vaping Use: Never Used Substance Use Type: Crack/Cocaine and Heroin Meds Allergies Allergy/AdvReac Type Severity Reaction Status Date / Time No Known Allergies (No Known Allergy Verified 01/24/25 01:36 Allergies*) Active Medications: Current Medications Acetaminophen (Acetaminophen 325 Mg Tablet) 650 mg PO Q6H PRN PRN Reason: Pain, Mild 1-3,fever,headache Calcium Carbonate (Calcium Carbonate 750 Mg Tab.Chew) 750 mg PO Q4H PRN PRN Reason: Heartburn Clonidine HCl (Clonidine Hcl 0.1 Mg Tablet) 0.1 mg PO BID PRN; Protocol PRN Reason: Anxiety/restlessness Last Admin: 01/24/25 20:28 Dose: 0.1 mg Enoxaparin Sodium (Enoxaparin Sodium 40 Mg/0.4 Ml Syringe) 40 mg SUBCUT Q24H [facility] Last Admin: 01/24/25 09:36 Dose: 40 mg Hydromorphone HCl (Hydromorphone Hcl 1 Mg/Ml Syringe) 0.5 mg IVPUSH Q4H PRN; Protocol PRN Reason: Pain, Severe (Pain Scale 7-10) Last Admin: 01/24/25 20:27 Dose: 0.5 mg Hydroxyzine HCl (Hydroxyzine Hcl 25 Mg Tablet) 25 mg PO Q8H PRN PRN Reason: anxiety/restlessness Last Admin: 01/24/25 20:28 Dose: 25 mg Lactated Ringer's (Lr) 1,000 mls @ 100 mls/hr IVCONT .Q10H [facility] Last Admin: 01/24/25 20:30 Dose: 100 mls/hr Piperacillin Sod/Tazobactam (Sod 3.375 gm/ Sodium Chloride) 50 mls @ 100 mls/hr IV Q6H [facility] Last Infusion: 01/24/25 21:14 Dose: Infused Vancomycin HCl 1,250 mg/ (Sodium Chloride) 250 mls @ 166.667 mls/hr IV Q12H [facility] Last Infusion: 01/24/25 18:43 Dose: Infused Magnesium Hydroxide (Milk Of Magnesia 30 Ml Oral.Susp) 30 ml PO DAILY PRN PRN Reason: Constipation Melatonin (Melatonin 3 Mg Tablet) 6 mg PO BEDTIME PRN PRN Reason: Insomnia Methadone HCl (Methadone Hcl 20 Mg/2 Ml Oral.Conc) 10 mg PO DAILY PRN PRN Reason: Opiate Withdrawal Methadone HCl (Methadone Hcl 20 Mg/2 Ml Oral.Conc) 30 mg PO DAILY@0800 [facility] Nicotine (Nicotine 21 Mg Patch.Td24) 21 mg TRANSDERMA DAILY PRN PRN Reason: Nicotine Cravings Nicotine Polacrilex (Nicotine Polacrilex 2 Mg Gum) 2 mg BUCCAL Q2H PRN PRN Reason: Nicotine Cravings Pharmacy Consult (Consult Rx Vancomycin Dosing) 1 each MISCELLANE DAILY PRN PRN Reason: Consult order Sodium Chloride (0.9 % Sodium Chloride Flush 3 Ml Syringe) 3 ml IVFLUSH QSHIFT [facility] Last Admin: 01/24/25 20:27 Dose: 3 ml Home Medications ?Medication ?Instructions ?Recorded ?Confirmed ?Last Taken ?Type acetaminophen 325 mg tablet 650 mg PO QID PRN Pain 05/1601/24/25 Unknown History (Tylenol) ibuprofen 200 mg tablet 400 mg PO Q6H PRN Pain 01/2401/24/25 Unknown History Physical Exam 2 Vital Signs: Vital Signs: Last Vital Signs Temp 99.5 F 01/24/25 19:25 Pulse 97 01/24/25 19:25 Resp 16 01/24/25 19:25 BP 124/58 L 01/24/25 19:25 Pulse Ox 97 01/24/25 19:25 O2 Del Method Room Air 01/24/25 19:25 BMI result Body Mass Index 26.1 Const: General: cooperative HEENT: Head: Yes normal to inspection Face and sinus: Yes normal facial exam Mouth: Normal oral and palatal mucosa present Teeth and gingiva: d entition normal Eyes: General: appearance normal, both eyes and all related structures P upils: Equal, round and reactive pupils present Resp: Effort & Inspection: normal respiratory effort Cardio: Rate: regular rate Rhythm: regular rhythm GI: Palpation (GI): Soft to palpation and nontender : General: Yes no CVA tenderness Back/Spine/Pelvis: Back: no CVA tenderness Skin: General skin exam: no rashes or lesions noted Neuro: General: moves all extremities Cranial nerves: Yes Equal, round and reactive pupils present Extrem: General: Yes normal to inspection Psych: Appearance: grossly normal Results Labs 01/24/25 07:50 01/24/25 07:50 Labs: Short CBC 01/24/25 01/24/25 Range/Units 01:58 07:50 WBC 6.7 5.4 (4.8-10.8) X10*3/uL Hgb 11.6 L 10.5 L (12.0-16.0) g/dl Hct 35.2 L 32.1 L (37.0-47.0) % Plt Count 226 D 196 (160-400) X10*3/uL BMP 01/24/25 01/24/25 01:58 07:50 Sodium 141 142 Potassium 3.9 4.0 Chloride 102 110 H Carbon Dioxide 30 H 27 BUN 12 8 L Creatinine 0.66 0.63 Calcium 9.7 8.6 D Cardiac Enzymes 01/24/25 Range/Units 01:58 Total Creatine Kinase 225 H (26-140) U/L Liver Function 01/24/25 Range/Units 01:58 Total Bilirubin 0.3 (0.0-1.0) mg/dL Direct Bilirubin 0.1 (0.0-0.5) mg/dL AST 31 (5-31) U/L ALT 26 (0-31) U/L Alkaline Phosphatase 70 (39-117) U/L Albumin 4.1 (3.5-5.0) g/dL Urine 01/24/25 Range/Units 03:29 Urine Color Yellow Urine Appearance Clear Urine pH 7.5 (5.0-9.0) Ur Specific Kincaid 1.010 (1.005-1.025) Urine Protein Negative (Neg-Trace) mg/dL Urine Glucose (UA) Negative (Negative) mg/dL Microbiology Microbiology Results: Microbiology 01/24/25 02:34 Wrist Left Gram Stain - Final 01/24/25 02:14 Abscess Facial Gram Stain - Final Assessment and Plan (1) Opioid use disorder: Status: Acute (2) Cellulitis of face: Status: Acute Plan we will contact current antiibiotica Await culture POssile po Doxcycline for a week likely check HIV test
[2025-01-25 03:21] VITALS: BP 126/73; PULSE 89; RESP 14; TEMP 36.1; O2SAT 99
[2025-01-25 07:16] VITALS: BP 136/79; PULSE 100; RESP 18; TEMP 37.2; O2SAT 98
[2025-01-25 07:30] LABS: MANUAL DIFF FLAG NO
[2025-01-25 07:32] LABS: Hematocrit 34.9 % (37.0-47.0); Hemoglobin 11.3 g/dl (12.0-16.0); Imm Gran Abs Auto 0.00 X10*3/uL (0.00-0.03); Imm Gran Pct Auto 0.0 % (0.0-0.4); Lymphocytes Absolute Auto 1.4 X10*3/uL (1.2-4.9); Mean Corpuscular HGB Conc 32.4 g/dl (31.0-35.0); Mean Corpuscular Hemoglobin 29.4 pg (27.0-33.0); Mean Corpuscular Volume 90.6 fL (80.0-98.0); NRBC Abs Auto 0.000 X10*3/uL (0.0-0.012); NRBC Pct Auto 0.0 /100WBC (0.0-0.2); Platelet Count 193 X10*3/uL (160-400); Red Blood Count 3.85 X10*6/uL (4.20-5.50); White Blood Count 5.1 X10*3/uL (4.8-10.8)
[2025-01-25 07:48] LABS: Creatinine Clr Calc Pharmacy 145.2; Estimated Glomerular Filt Rate > 60
[2025-01-25] MEDS: methADONE HCl 20 MG/2 ML ORAL.CONC 30 MG PO (07:51)
[2025-01-25] MEDS: 0.9 % Sodium Chloride Flush 3 ML SYRINGE IVFLUSH (07:52)
[2025-01-25] MEDS: Lactated Ringers 1,000 ML 100 ML IVCONT (08:39)
[2025-01-25 09:22] LABS: HIV Num 1 0.21 S/CO (0.00-0.99)
--- NOTE | 2025-01-25 09:39 | PC.NURSE ---
Per PA Male visitor at the bedside brought pt in belongings. D/t previously having parafernalia at the bedside this RN asked patient if any drugs were brought into her from friend. Pt states he did not bring anything to her. Pt had small container on bedside table, this RN asked pt was it was, pt states it was a marijunana hit , this RN opened container with pts permission and white residue was noted. Per Pt she wants to leave AMA. PA returned to bedside, pt states understands risks of leaving AMA. Paper worked signed willingly by Pt, witnessed by job placement specialist. IV removed. Pt accompanied to exit with security.
--- NOTE | 2025-01-25 09:43 | P.DS_ITS ---
DS: Providers Provider Date of Service: 01/25/25 Date of admission: 01/24/25 04:52 Date of discharge: 01/25/25 Primary care physician: Alysia Proctor MD Consults: 01/24/25 04:57 Addiction Medicine Provider Routine Consulting Provider: Addiction Covering Reason for consultation: heroine abuse Consult to Infectious Diseases Routine Consulting Provider: [facility] – [place] Infect[facility] Disease [facility] Reason for consultation: facial cellulitis 01/24/25 11:26 Consult to General Surgery Routine Consulting Provider: [facility] – [place] General Surgeons Reason for consultation: Left forearm wound, no abscess; ?Debridement 01/24/25 14:05 Consult to Wound Care Routine Consulting Provider: [facility] – [place] Wound Care Management Reason for consultation: Left forearm wound, right face wound Has provider been notified: Yes DS: Diagnosis Discharge Diagnosis (1) Opioid use disorder: Status: Acute (2) Cellulitis of face: Status: Acute DS: Summary Hospital Course Hospital Course: From admission HPI: Date of Service: 01/24/25 Chief Complaint: Skin infection 44-year-old female with a past medical history of opiate dependence; denies IVDA; presented to the hospital with a chief complaint of pain redness of her skin on her right side of the face for the 4 days; and also complains of the wound on her left forearm with surrounding erythema. Patient reports that her left arm wound is been worsening for the past 4 days. Also has discomfort in her face. Denies any headaches or blurry visions. Denies any lightheadedness or dizziness. Denies any numbness tingling or focal weakness. Patient denies IV drug abuse. Mentioned she used heroin and fentanyl-nasally; patient denies any chest pain or palpitations. Denies any GI symptoms. Review of all other systems is negative except mentioned above ER course: Per ER team, patient noted to have right facial erythema with small wounds with granulation tissue; also noted to have open wound on the left forearm with surrounding erythema-no discharge; given IV vancomycin and Zosyn. CT of the face showed superficial soft tissue swelling of the right face without any abscess collection. Multiple dental caries. Hospital Course: Pt was admitted to the hospital for open wounds and cellulitis to right side of her face and left forearm. Pt was started on IV antibiotics and had specialist consultation with ID, General surgery, and addiction medicine. Pt with a current history of polysubstance use disorder and threatened to leave AMA multiple times during hospital stay. Last evening a bed search revealed drug paraphernalia and a vaping device, all of which were confiscated. Pt initially threatened to leave AMA at that time but stayed the night after being provided with nicotine replacement therapy and started on methadone. This morning, however, pt had visitors that then provided her with additional drugs that were found during a repeat bed search. Pt is now demanding to leave AMA despite being told the risks of doing so which include sepsis, bacteremia, loss of limb, and even loss of life. Pt would benefit from an additional 2 days of IV antibiotics as well as surgical debridement to her wounds, however pt refuses to stay for that treatment. In lieu of optimal treatment, will discharge pt on doxycycline x7 days. Pt should follow up with her PCP in 1 week to ensure resolution of multiple areas of cellulitis. Time Attestation Discharge Coordination Time (in mins): 35 Quality: Safe Use of Opioids Does Pt have an Active Cancer Diagnosis on the Problem List?: No Quality: Stroke Does the patient have a stroke diagnosis?: No Physical Exam Exam: Exam: General: AOx3, no acute distress Resp: CTA bilaterally Face: Right-sided face with wound that is currently scabbed over. Erythema and swelling improved from yesterday. CVS: S1, S2, RRR GI: +BS, NT, no distention Skin: Warm, dry Neuro: Cranial nerves II-XII grossly intact bilaterally. Motor grossly intact bilaterally Extremities: Left forearm covered in clean and dry dressing. Erythema and swelling of left hand improved. Area tender to the touch. Psych: Appropriate affect Vital Signs: Vital Signs: Last Vital Signs Temp 99.0 F 01/25/25 07:16 Pulse 100 01/25/25 07:16 Resp 18 01/25/25 07:16 BP 136/79 01/25/25 07:16 Pulse Ox 98 01/25/25 07:16 O2 Del Method Room Air 01/25/25 07:16 BMI result Body Mass Index 26.1 DS: Data Data Completed and Pending Labs on day of discharge: Laboratory Results - last 24 hr 01/25/25 06:21 WBC 5.1 RBC 3.85 L Hgb 11.3 L Hct 34.9 L MCV 90.6 MCH 29.4 MCHC 32.4 RDW 13.6 Plt Count 193 MPV 11.5 Immature Gran % (Auto) 0.0 Neut % (Auto) 58.0 Lymph % (Auto) 28.1 Donley % (Auto) 9.6 Eos % (Auto) 3.7 Baso % (Auto) 0.6 Lymph # (Auto) 1.4 Donley # (Auto) 0.5 Eos # (Auto) 0.2 Baso # (Auto) 0.0 Abs Immat Gran (auto) 0.00 Absolute Neuts (auto) 2.9 Absolute Nucleated RBC 0.000 Nucleated RBC % (auto) 0.0 Hold Purple Top SEE NOTE Creatinine 0.59 Estim Creat Clear Calc 145.2 Estimated GFR > 60 Preliminary micro results at discharge 01/24/25 01:58 Blood Culture - Preliminary Blood - Venous No growth after 24 hours. 01/24/25 01:58 Blood Culture - Preliminary Blood - Venous No growth after 24 hours. Discharge Plan Discharge Anticipated Discharge Date/Time: 01/25/25 09:33 Patient Disposition: Left Against Medical Advice Discharge Diagnosis: Left forearm open wound with cellulitis Referrals: Alysia Proctor MD [Primary Care Provider, Internal Medicine] - 1 Week Discharge Medications: New doxycycline monohydrate 100 mg tablet 100 mg PO BID Qty: 14 0RF Rx Instructions: Take 1 tablet twice a day with food for the next 7 days, ending on 01/31 No Action acetaminophen [Tylenol] 325 mg Tablet 650 mg PO QID PRN (Reason: Pain) ibuprofen 200 mg Tablet 400 mg PO Q6H PRN (Reason: Pain) Discharge Orders: Discharge Order (Routine); Ordered 01/25/25 Ordered By: Laly Larose Print Language: Estonian Care Plan Goals: Pt left AMA Health Concerns: Open wounds with cellulitis to right face and left forearm Sepsis Left arm amputation Plan of Treatment: Pt was admitted to the hospital for open wounds and cellulitis to right side of her face and left forearm. Pt was started on IV antibiotics and had specialist consultation with ID, General surgery, and addiction medicine. Pt with a current history of polysubstance use disorder and threatened to leave AMA multiple times during hospital stay. Last evening a bed search revealed drug paraphernalia and a vaping device, all of which were confiscated. Pt initially threatened to leave AMA at that time but stayed the night after being provided with nicotine replacement therapy and started on methadone. This morning, however, pt had visitors that then provided her with additional drugs that were found during a repeat bed search. Pt is now demanding to leave AMA despite being told the risks of doing so which include sepsis, bacteremia, loss of limb, and even loss of life. Pt would benefit from an additional 2 days of IV a ntibiotics as well as surgical debridement to her wounds, however pt refuses to stay for that treatment. In lieu of optimal treatment, will discharge pt on doxycycline x7 days. Pt should follow up with her PCP in 1 week to ensure resolution of multiple areas of cellulitis. Assessment: See discharge summary
--- NOTE | 2025-01-25 09:47 | HO.WOUND ---
Wound consult: attempted wound care consulted for wounds to left arm and right face. upon arrival to bedside, direct care RN reports patient had just left AMA.
--- NOTE | 2025-01-25 09:58 | MHC.CM.PN ---
PT LEFT AGAINST MEDICAL ADVICE PRIOR TO CM ASSESSMENT
== END 2025-01-25 09:47 | disposition left against medical advice (07) | DRG 603 ==
LOC: HO.ED 04:53 → HO.EDOVER 05:06 → HO.S3 16:22
PROVIDERS: Admitting Provider Hospitalist; Emergency Provider Emergency Medicine; Visit Provider Student in an Organized Health Care Education/Training Program
DX: L03.211 Cellulitis of face (principal); F11.20 Opioid dependence, uncomplicated; L03.114 Cellulitis of left upper limb; F17.210 Nicotine dependence, cigarettes, uncomplicated; Z71.6 Tobacco abuse counseling; S51.802A Unspecified open wound of left forearm, initial encounter; X58.XXXA Exposure to other specified factors, initial encounter; Z20.822 Contact with and (suspected) exposure to COVID-19
CPT/HCPCS: 36415; 70487; 76882; 80048; 80076; 80307; 81001; 82550; 82565; 83605; 83735; 84702; 85025; 86140; 87040; 87070; 87077; 87086; 87147; 87186; 87205; 87389; 87637; 99221; 99285; J1171; J1650; J2543; J3373; J3374; J7120; Q9967

== ENCOUNTER → 2025-01-24 02:35 | Outpatient (BNV) | payer OTHER, SELFPAY | PROVIDERS: Emergency Provider Emergency Medicine; PCP Internal Medicine; Visit Provider Radiology Diagnostic Radiology | DX: L03.211 Cellulitis of face (principal); R60.0 Localized edema | CPT/HCPCS: 70487; 76882 ==

== ENCOUNTER → 2025-01-24 04:52 | Outpatient (BNV) | payer OTHER, SELFPAY | PROVIDERS: Admitting Provider Hospitalist; Emergency Provider Emergency Medicine; PCP Internal Medicine | DX: L03.211 Cellulitis of face (principal); L03.114 Cellulitis of left upper limb | CPT/HCPCS: 99222 ==

== ENCOUNTER → 2025-01-24 04:52 | Outpatient (BNV) | payer OTHER, SELFPAY | PROVIDERS: Admitting Provider Hospitalist; Emergency Provider Emergency Medicine; PCP Internal Medicine; Visit Provider Nurse Practitioner Psychiatric/Mental Health | DX: F11.90 Opioid use, unspecified, uncomplicated (principal) | CPT/HCPCS: 99222 ==

== ENCOUNTER → 2025-01-24 04:52 | Outpatient (BNV) | payer OTHER, SELFPAY | PROVIDERS: Admitting Provider Hospitalist; Emergency Provider Emergency Medicine; PCP Internal Medicine; Visit Provider Student in an Organized Health Care Education/Training Program | DX: L03.211 Cellulitis of face (principal); L03.114 Cellulitis of left upper limb; S51.802A Unspecified open wound of left forearm, initial encounter | CPT/HCPCS: 99222; 99239; 99499 ==

== ENCOUNTER → 2025-01-24 04:52 | Outpatient (BNV) | payer OTHER, SELFPAY | PROVIDERS: Admitting Provider Hospitalist; Emergency Provider Emergency Medicine; PCP Internal Medicine; Visit Provider Internal Medicine | DX: L03.211 Cellulitis of face (principal); F11.90 Opioid use, unspecified, uncomplicated | CPT/HCPCS: 99222 ==